=== PATIENT | male | born 1940 | race Caucasian/White ===

== ENCOUNTER → 2018-04-27 12:23 | Outpatient (CLI) | payer MEDICARE, SELFPAY ==
[2018-04-27 11:17] VITALS: BMI 30.5
--- NOTE | 2018-04-27 12:32 | RAD_ITS ---
STUDY: X-RAY CHEST REASON FOR EXAM: Male, 77 years old. Tachycardia, shortness of breath TECHNIQUE: PA and lateral views of the chest. COMPARISON: None. FINDINGS: The lungs are clear and expanded. There is no demonstrated pleural abnormality. Normal size heart. Normal mediastinum and misa. Normal visualized pulmonary arteries. Normal visualized aortic arch and descending thoracic aorta. There are diffuse degenerative changes of the visualized thoracic spine. Normal visualized ribs, clavicles, and shoulders. There is no demonstrated abnormality of the visualized soft tissue structures of the upper abdomen. RAD/Chest PA and Lateral IMPRESSION: No acute pulmonary process Electronically Signed: Miguel A Huntley MD at 12:41 EST , Service support ,
[2018-04-27 14:22] LABS: AST(SGOT) 18 U/L (15-37); Alanine Aminotransfer ALT/SGPT 23 U/L (16-61); Albumin, Serum 4.1 g/dL (3.2-5.0); Alkaline Phosphatase 77 U/L (45-117); Globulin 3.6 g/dL (2.2-4.2); Protein, Total 7.7 g/dL (6.4-8.2); T4 Free Direct 1.28 ng/dL (0.76-1.46); Thyroid Stim Hormone (TSH) 3.41 uIU/mL (0.358-3.74)
--- OUTSIDE RECORDS SUMMARY | 2018-07-02 04:31 | XMS RPT_ITS ---
:1940 Author Organization [facility] Care Team Providers Name Role Phone NARINDER MIRELES DO Attending Unavailable NARINDER MIRELES DO Primary Care Unavailable NARINDER MIRELES DO Attending Unavailable NARINDER MIRELES DO Primary Care Unavailable Ewelina Cervantes Attending Unavailable Ender Rose Attending Unavailable DOCTOR, OUT OF TOWN Referring Unavailable Ender Rose Attending Unavailable Ender Rose Referring Unavailable Narinder Mireles Primary Care Unavailable PROBLEMS PROBLEMS DATE TYPE CONDITION / CODE ATTENDING STATUS SOURCE 04/27/2018 Unknown I48.0 - Paroxysmal SophiageorgeEnder montoya Active [place] [facility] fibrillation / [facility] I48.0(ICD-10) Repository PROCEDURES PROCEDURES No Procedure Records FoundRESULTS RESULTS LIVER PROFILE Collected: 04/27/2018 Status: F Source: JOSIE 1:03 PM [facility] REPOSITORY TYPE CODE TESTS RESULT OUT OF RANGE REFERENCE UNITS LAB L501.1500 6.4-8.2 g/dL Normal T PROT 7.7 LAB L501.1800 3.2-5.0 g/dL Normal ALB 4.1 LAB L501.1950 2.2-4.2 g/dL Normal GLOB 3.6 LAB L501.4100 15-37 U/L Normal AST 18 LAB L501.4305 45-117 U/L Normal ALK P 77 LAB L501.4405 16-61 U/L Normal ALT 23 LAB L501.4600 0.20-1.00 mg/dL Normal T BILI 0.60 LAB L501.4700 0.00-0.30 mg/dL Normal D BILI 0.20 Performed By: #### L500.3400, L501.9520, L506.0400 #### [facility] [address] [place], [place], [id number] THYROID STIM HORMONE Collected: 04/27/2018 Status: F Source: JOSIE (TSH) 1:03 PM [facility] REPOSITORY TYPE CODE TESTS RESULT OUT OF RANGE REFERENCE UNITS LAB L501.9520 0.358-3.74 uIU/mL Normal TSH 3.41 Performed By: #### L500.3400, L501.9520, L506.0400 #### [facility] [address] [place], [place], [id number] T4 FREE DIRECT Collected: 04/27/2018 Status: F Source: JOSIE 1:03 PM [facility] REPOSITORY TYPE CODE TESTS RESULT OUT OF RANGE REFERENCE UNITS LAB L506.0400 0.76-1.46 ng/dL Normal T4 FREE 1.28 DIRECT Performed By: #### L500.3400, L501.9520, L506.0400 #### [facility] [address] [place], [address] CARDIOLOGY VISIT Observed: 04/27/2018 Status: F Source: JOSIE REPORT 12:46 PM [facility] REPOSITORY [facility] [address] [place] [address] OFFICE VISIT Date of Service: 04/27/18 MR#: [id number] Acct: [id number] Name: TAVON MONTGOMERY Rep #: [id number] : 1940 Provider: Ender Rose MD Age/Sex: 77/M Location: [facility] [place] Status: Signed HPI HPI Details: TAVON MONTGOMERY, is a 77 M who presents to the office today for Outpatient cardiovascular consultation for concerns of paroxysmal atrial fibrillation. He has a history of underlying atrial fibrillation. It appears that he was hospitalized at [facility] in July 2016 for concerns of underlying atrial fibrillation. It appears during his cardiovascular evaluation he has undergone studies which have included a transthoracic echocardiogram and a pharmacologic stress nuclear imaging study. In July of 2016 he had a transthoracic echocardiogram. His left ventricle was reported as demonstrating mildly to moderately increased wall thickness, hypokinesis of the anteroseptum and the anterior wall, an LVEF of 50%, with left atrial dilatation, right atrial dilatation, mild mitral annular calcification with mild diffuse thickening of the mitral valve leaflets with mild mitral valve stenosis and mild MR, and trivial AI. There was also a comment of moderate tricuspid valve regurgitation. In August of 2016 he had a pharmacologic stress nuclear imaging study performed. This was reported as showing no evidence of ischemia or infarction. Ejection fraction was unable to be calculated due to his underlying atrial fibrillation. He has previously followed with Dr. Edvin Land of cardiology. He has been following with his physician collet gluer since Dr. Soria . He states he has continued medical management and she has not required additional diagnostic studies or therapeutic intervention. He had an outpatient visit on 03/07/2018. At that time he was being followed for his history of atrial dysrhythmia as well as hypertension. Today he states overall he has done well. He is not complaining of any ongoing symptoms at rest or with exertion of classic angina pectoris. He has had no evidence of overt CHF or pulmonary edema. There has been no near syncope or syncope. He has not recognized any obvious palpitations or rapid rates. He did have a followup ECG in the office today. He was noted to be in sinus rhythm with low voltage QRS with poor R-wave progression and an anteroseptal TX pattern of indeterminate age which could not be excluded. He states he has had no followup laboratory studies, chest X rays, or PFTs to the best of his knowledge since being on amiodarone therapy. Intake Vital Signs04/27/18 Height 5 ft 10 in 04/27/18 Weight: 213 lb 04/27/18 Body Mass Index (BMI) 30.5 04/27/18 Blood Pressure 134/68 H Intake Visit Reasons: Transfer from [facility] Allergies ibuprofen [From Motrin IB] Allergy (Unknown, Verified 04/27/18 11:18) Unknown Medications ezetimibe 10 mg tablet 10 mg PO DAILY 04/21/18 [History Confirmed 04/27/18] magnesium oxide 400 mg capsule 1,600 mg PO DAILY cap 04/21/18 [History Confirmed 04/27/18] rivaroxaban 20 mg tablet 20 mg PO DAILY 04/21/18 [History Confirmed 04/27/18] amiodarone 200 mg tablet 200 mg PO DAILY 04/27/18 [History Confirmed 04/27/18] isosorbide mononitrate ER 30 mg tablet,extended release 24 hr 30 mg PO DAILY 04/27/18 [History Confirmed 04/27/18] [facility] Medical History Paroxysmal atrial fibrillation (Chronic) Essential hypertension (Chronic) Pure hypercholesterolemia (Chronic) Osteoarthritis (Chronic) Surgical History History of appendectomy (Resolved) History of right knee joint replacement (Resolved) Family History Mother Diabetes Social History Smoking Status: Former smoker alcohol intake: never substance use type: does not use ROS Const Const: Negative for fatigue, weakness, weight gain, weight loss, frequent falls or excessive sweating Eyes Eyes: Negative for change in vision, blurry vision or transient loss of vision ENT ENT: Negative for dizziness or balance problems Cardio Chest Pain: No Palpitations: No Edema: None Muscle aches with walking: None Additional Details: Patient reports that pain from back to Lt chest is recurrent shingle pain Resp Respiratory: Positive for SOB with activity (occasional); negative for SOB at rest GI GI: Negative vomiting or vomiting blood/hematemesis : Negative for hematuria Musc Musc: Negative for balance problems, muscle aches/ myalgia, muscle weakness or joint pain Skin Skin: Negative non-healing lesions or rash Neuro Neuro: Negative for weakness, blurry vision, dizziness, lightheadedness, frequent falls or orthostatic symptoms William Hematologic/Lymphatic: Negative for easy bleeding Endo Endo: Negative for fatigue or excessive sweating Psych Psych: Negative for anxiety or depression Allergy Allergy/Immunology: Negative for hives, Negative for rash Cardiology Exam Const Appearance: cooperative, healthy appearing, comfortable, no acute distress, well developed and well groomed Nutritional Appearance: overweight Orientation: alert, awake and oriented x3 Head Head: normal to inspection, normocephalic and atraumatic Ears: hearing grossly normal bilaterally Nose: external nose normal Face and Sinus: face symmetric Mouth: oral mucosae normal Teeth and gingiva: poor dentition Eyes Eyelids: eyelids normal Conjunctivae: conjunctivae normal Pupils: PERRL EOM: EOM intact bilaterally Neck Neck: normal visual inspection and full ROM Carotids: normal carotid upstroke Chest Chest inspection: normal inspection of the chest Auscultation: Bilateral: Clear to Auscultation Cardio Palpation: normal PMI Rate: regular rate Rhythm: regular rhythm Heart sounds: S1 normal and S2 normal Murmur: Grade 2/6, soft, mid systolic and LLSB GI GI: normal to inspection, bowel sounds present and soft Neuro General: alert, awake, oriented x3 and moves all extremities Skin Skin: no rashes or lesions noted Extremities Pulses: Normal: Right Radial Pulse, Left Radial Pulse Lower Extremity Edema: None: Bilateral Psych Psychological: normal affect Assessment AND Plan 1. Paroxysmal atrial fibrillation I48.0 Plan At the present time he appears to be remaining in sinus rhythm. He will continue his current medical management. Based upon the medications he is on he will be setup for laboratory studies with hepatic and thyroid labs, a chest x-ray, and PFTs. Orders Orders: 2. Essential hypertension I10 Plan His blood pressure appears to be reasonably well controlled at the moment. He will continue medical management. This can be adjusted as deemed appropriate. 3. Pure hypercholesterolemia E78.00 Plan He states she has a history of hyperlipidemia which is followed by his primary care physician. He is on medical management with Zetia. Plan Detail Additional Comments At the present time he will continue medical therapy. However there has been no obvious explanation for the patient being on medical management with respect to his nitrates. He states that after being on nitrates he notices no significant difference in how he feels. Thus at the present time he will be allowed to stop his nitrate therapy. If for some reason he feels worse than he may need to resume it and undergo further evaluation and care. Otherwise he will continue with his laboratory followup, chest x-ray, and PFTs. The above was discussed with the patient and spouse. He was agreeable to this approach. Thank you for allowing me to participate in the care of your patient. Please don't hesitate to call if any issues arise. This note was generated using a voice recognition system and there may be incorrect words, spelling or punctuation that were not noted when reviewing the office note prior to saving. Follow Up 6 Months (PFM) Coding Level of Care Code Off vis,new,level 4 Diagnoses Paroxysmal atrial fibrillation I48.0 Essential hypertension I10 Pure hypercholesterolemia E78.00 Coding Level of Care Code Off vis,new,level 4 Diagnoses Paroxysmal atrial fibrillation I48.0 Essential hypertension I10 Pure hypercholesterolemia E78.00 Supplemental Info Supplemental Information Diagnostics Electrocardiogram 04/27/18 Chest X-Ray 04/27/18 04/27/18 1246 <Electronically signed by Ender Rose MD> Date Ender Rose MD Cosigner Signature: Date (if applicable) CC: Narinder Mireles DO CHEST PA AND LATERAL Observed: 04/27/2018 Status: F Source: JOSIE 12:30 PM [facility] REPOSITORY [facility] Imaging Services [facility] [address] [place] [address] Chest PA and Lateral MR#: [id number] Acct: [id number] Name: TAVON MONTGOMERY Rep #: [id number] : 1940 M 77 From: Yohan Huntley MD PCP: Narinder Mireles DO Status: REG CLI Study: Chest PA and Lateral Date of Exam: 04/27/18 Exam# [id number] Ordering Dr: Ender Rose MD STUDY: X-RAY CHEST REASON FOR EXAM: Male, 77 years old. Tachycardia, shortness of breath TECHNIQUE: PA and lateral views of the chest. COMPARISON: None. FINDINGS: The lungs are clear and expanded. There is no demonstrated pleural abnormality. Normal size heart. Normal mediastinum and misa. Normal visualized pulmonary arteries. Normal visualized aortic arch and descending thoracic aorta. There are diffuse degenerative changes of the visualized thoracic spine. Normal visualized ribs, clavicles, and shoulders. There is no demonstrated abnormality of the visualized soft tissue structures of the upper abdomen. RAD/Chest PA and Lateral IMPRESSION: No acute pulmonary process Electronically Signed: Miguel A Huntley MD at 12:41 EST , Service support , CC: Narinder Mireles DO; Ender Rose MD Director Of Publications: Signed 12 LEAD EKG PERFORMED Observed: 04/27/2018 Status: F Source: [place]OSIE BY [facility] [place] 11:14 AM [facility] REPOSITORY [facility] [address] [place] [address] 12 Lead EKG performed by [facility] [place] 04/27/18 1113 MR#: [id number] Acct: [id number] Name: TAVON MONTGOMERY Rep #: [id number] : 1940 77 From: Ender Rose MD Attending Dr: Ender Rose MD Status: DEP [facility] Ordering Dr: Ender Rose MD Date: 04/27/18 Location: [facility] [place] Sex: M C Admitted: BMS/12 Lead EKG performed by [facility] [place] ECG Report Interpretation Sinus Rhythm Low voltage QRS (limb leads)Poor R wave progressionAnteroseptal TX, age undetermined, cannot be excludedNonspecific T wave abnormalityABNORMAL Electronically signed on 04/27/2018 at 18:21 by Ender Rose Software Version [id number] 04/27/18 1825 Date Ender Rose MD CC: OUT OF TOWN DOCTOR Date Dictated: 04/27/18 1113 Date Transcribed: 04/27/181112 Director Of Publications: PM Signed MG Collected: 06/20/2017 Status: F Source: [facility] 11:43 AM [facility] REPOSITORY TYPE CODE TESTS RESULT OUT OF REFERENCE UNITS RANGE LAB MG(LOINC) 1.7-2.5 mg/dL Low Magnesium Lvl 1.6 Performed By: #### MG #### [place] [address] ALLERGIES ALLERGIES DATE TYPE / CODE NAME / CODE REACTION SEVERITY SOURCE 04/27/2018 Drug ibuprofen/F0 Unknown Unknown [facility] Allergy/4160 [id number]([facility] [address](SNOMED ORM) Repository CT) ENCOUNTERS ENCOUNTERS ADMIT/DISCHARGE ACCOUNT NUMBER ADMITTING ENCOUNTER LOCATION SOURCE CLASS 04/27/2018 [id number] Ambulatory [facility] ding:RAD Repository 04/27/2018/04/27/19 [id number] Ambulatory BMSBuilding: [place] [facility] Repository 04/21/2018 [id number] Ambulatory BMSBuilding: [place] [facility] Repository 06/20/2017/06/21/19 [id number] Ambulatory BBuilding:[address] Repository 06/01/2017/06/01/19 [id number] Ambulatory [address] ding:[facility] Repository PAYERS PAYERS ENCOUNTER GUARANTOR PAYER SUBSCRIBER SOURCE 04/27/2018 TAVON C Primary TAVON C Josie [id number] Insurance:HUMANA SETTIEDOB: Community [place] [employer] MEDICARE [place] [address] Number: Repository [address]Srw: 330 [id number] [phone] (HP) Date:[id number] [address] [place] [id number]: 04/27/2018 Secondary NOT GIVENUNK Josie Insurance:SELF PAY [facility] Number: Effective Repository Date:2018-04-27 04/27/2018 TAVON C Primary TAVON C Josie [id number] N Insurance:HUMANA SETTIEDOB: Community [place] [employer] MEDICARE PPOPolicy 1941-[address] Number: Repository [id number]: 330 [id number] [phone] () Date:[id number] [id number]: 04/27/2018 Secondary NOT GIVENUNK Josie Insurance:SELF PAY [facility] Number: Effective Repository Date:2018-04-27 04/21/2018 TAVON C Primary NOT GIVENUNK [place] [id number] Insurance:SELF PAY Community [place] [address] Number: Effective Repository [id number]: ([phone]) Date:2018-04-21 [phone] () 06/20/2017 TAVON C Primary TAVON Garcia [facility] SETTIEDOB: Insurance:HUMANA GOLD SETTIEDOB: Foundation N CHOICE MEDICAREPolicy [id number] [facility] Number: [address] [place], [place] [id number] [place] [address]~DANDRE@ Date:2017-06-20 24538Fuu: 330 [email or web address]: [id number] [phone] Name:[address] (HP)Tel: (752) (HP)Tel: [phone] [place] [address] [phone] (JE) [phone] (GQ) [address]EC: 06/01/2017 TAVON Jose [facility] Jose [facility] SETTIEDOB: Insurance:MARYA DALIA SETTIEDOB: Foundation [id number] N CHOICE MEDICAREPolicy [id number] Repository [address] Number: [address] [place], [place] [id number] [place] [address]~DANDRE@ Date:2017-06-01 15807Cbb: [phone]) [email or web address]: [id number] [phone] Name:L[place]ON Kinney (HP)Tel: [phone]) (HP)Tel: [phone], [place] [phone] (WP) [phone] (ZE) [phone]:
== END ==
PROVIDERS: Family Provider Family Medicine; PCP Family Medicine; Referring Provider Internal Medicine Cardiovascular Disease; Visit Provider Internal Medicine Cardiovascular Disease
DX: I48.0 Paroxysmal atrial fibrillation (principal)
CPT/HCPCS: 36415; 71046; 80076; 84439; 84443

== ENCOUNTER → 2018-05-15 06:51 | Outpatient (CLI) | payer MEDICARE, SELFPAY ==
[2018-04-27 11:17] VITALS: BMI 30.5
--- NOTE | 2018-05-16 12:20 | SPIR_ITS ---
Spirometry PFT Testing Spirometry PFT Testing: COMPLETE PULMONARY FUNCTION TEST INTERPRETATION Brief HPI: Patient is a 77 year old male, currently under the care of Dr. Rose, who presents to [facility] for complete pulmonary function tests secondary to diagnosis of high risk meds. Respiratory therapist reports good effort, but patient was unable to perform lung volumes or DLCO measurement secondary to pain associated with reported shingles.. Interpretation: Forced expiration spirometry shows no large airways obstructive ventilatory defect with an FEV1 of 87% predicted. There is no significant bronchodilator response by strict ATS criteria. Spirograms are of good quality and plateau slowly, indicating slowly emptying areas of the lungs. The respiratory flow volume loop shows decreased expiratory flow rates at high lung volumes consistent with small airways obstruction. Impression: Spirometry is grossly within normal limits. There is some stigmata of possible small airways disease. Unable to perform lung volumes and DLCO secondary to reported shingles.
== END ==
LOC: PSN 06:54
PROVIDERS: Family Provider Family Medicine; PCP Family Medicine; Referring Provider Internal Medicine Cardiovascular Disease; Visit Provider Internal Medicine Cardiovascular Disease
DX: I48.0 Paroxysmal atrial fibrillation (principal)
CPT/HCPCS: 94060

== ENCOUNTER → 2018-10-24 15:18 | Outpatient (CLI) | payer MEDICARE, SELFPAY ==
[2018-10-24 14:17] VITALS: BMI 29.2
[2018-10-24 16:40] LABS: Magnesium 1.7 mg/dL (1.6-2.6)
[2018-10-24 16:53] LABS: BNP,B-Type NATRIURETIC PEPTIDE 125.3 pg/mL (0-100)
== END ==
LOC: LAB 15:20
PROVIDERS: Family Provider Family Medicine; PCP Family Medicine; Referring Provider Nurse Practitioner Family; Visit Provider Nurse Practitioner Family
DX: E83.42 Hypomagnesemia (principal); R06.02 Shortness of breath
CPT/HCPCS: 36415; 83735; 83880

== ENCOUNTER → 2019-01-16 06:33 | Outpatient (CLI) | payer MEDICARE, SELFPAY ==
[2018-10-24 14:17] VITALS: BMI 29.2
[2019-01-08 12:55] VITALS: BMI 29.2
--- NOTE | 2019-01-16 11:17 | STRESSREP_ITS ---
Stress Test Report Date: 01-16-19 Procedure: Exercise tolerance test/imaging study Indications: This of breath/dyspnea; atrial fibrillation Consent: Per the patient Procedure: The patient exercised on a Jona protocol for 1 minute and 45 seconds completing completing Stage I achieving a peak heart rate of 99 bpm (69 % predicted maximal heart rate) with a peak blood pressure 150/78 mmHg and a peak MET capacity of 3 METs. The baseline ECG demonstrated sinus rhythm. The peak exercise ECG demonstrated no obvious ECG changes. There were no cardiac dysrhythmias pretest, during exercise, or recovery. The functional capacity was considered decreased. There was no complaint of chest discomfort during exercise or recovery. The examination was discontinued secondary to dyspnea. Impression: 1. Technically adequate (percent predicted maximal heart rate greater than 85%) exercise tolerance test 2. Peak exercise ECG with no obvious ECG changes 3. There were no cardiac dysrhythmias pretest, during exercise, or recovery 4. Pharmacologic (regadenoson) evaluation pending Procedure: Pharmacologic stress nuclear imaging study Consent: Per the patient Procedure: The patient underwent pharmacologic (Regadenoson) evaluation with a peak heart rate of 83 beats per minute (58 %predicted maximal heart rate) and a peak blood pressure of 142/60 mmHg. The baseline ECG demonstrated sinus rhythm. The peak pharmacologic ECG demonstrated no obvious ECG changes. There were no cardiac dysrhythmias pretest, during pharmacologic infusion, or recovery. There was no complaint of chest discomfort during pharmacologic infusion or recovery. The examination was discontinued secondary to completion of protocol. Impression: 1. Pharmacologic (Regadenoson) evaluation 2. Peak pharmacologic ECG with no obvious ECG changes. 3. There were no cardiac dysrhythmias pretest, during pharmacologic infusion, or recovery. 4. Nuclear images pending Myocardial perfusion imaging study: Technique: The patient was injected with 12.0 millicuries of technetium 99m Cardiolite and subsequently rest SPECT Cardiolite nuclear imaging was obtained in the hor izontal long, vertical long, and short axis views. The patient exercised on a Jona protocol for 1 minute and 45 seconds completing completing Stage I achieving a peak heart rate of 99 bpm (69 % predicted maximal heart rate) with a peak blood pressure 150/78 mmHg and a peak MET capacity of 3 METs. The patient underwent pharmacologic (Regadenoson) evaluation with a peak heart rate of 83 beats per minute (58 % percent predicted maximal heart rate) and a peak blood pressure of 142/60 mmHg. The patient was injected with 36.0 millicuries of technetium 99m Cardiolite and subsequently stress SPECT Cardiolite nuclear imaging was obtained in the horizontal long, vertical long, and short axis views. A gated Cardiolite study at peak stress was obtained. Interpretation: Rest and stress SPECT Cardiolite nuclear imaging status post realignment, normalization, and attenuation correction demonstrate relative uniform tracer uptake and myocardial perfusion appearing within normal limits. There is end systolic thickening and brightening. The gated Cardiolite study demonstrates myocardial thickening and inward wall motion. The reported LVEF is 66 %. Impression: 1. Rest and stress SPECT Cardiolite nuclear imaging demonstrate relative uniform tracer uptake and myocardial perfusion appearing within normal limits. 2. The gated Cardiolite study reports an LVEF of 66 %. This note was generated with [employer] software. It may contain incorrect words, spelling, and punctuation that were not noted in checking the note before signing.
[2019-01-16 15:36] LABS: Absolute Lymphocyte Count 1.21 X10^3/uL (0.83-4.51); Basophil# 0.02 X10^3/uL; Basophil% 0.5 % (0-1); Eosinophil# 0.03 X10^3/uL; Eosinophils% 0.8 % (0-5); Hematocrit 25.3 % (40-54); Hemoglobin 7.4 g/dL (13.0-16.5); Lymphocyte # 1.21 X10^3/ul (4.0); Lymphocyte % 31.5 % (19-41); Mean Corp Hgb Conc 29.2 g/dL (32-36); Mean Corpuscular Hgb 26.1 pg (27.0-32.0); Mean Corpuscular Volume 89.4 fL (80-94); Monocyte# 0.52 X10^3/uL; Monocyte% 13.5 % (0-10); NRBC Flagged by Analyzer 0 % (0-5); Neutrophil # 2.03 X10^3/uL (2.7-7.7); Neutrophil % 52.9 % (47-70); POSITIVE MORPHOLOGY YES; Platelet Count 155 K/mm3 (150-450); RBC Distribution Width CV 15.2 % (11.6-14.6); RBC Distribution Width SD 49.6 fl (35.1-43.9); Red Blood Count 2.83 M/mm3 (4.6-6.2); White Blood Count 3.8 K/mm3 (4.4-11.0)
[2019-01-16 15:44] LABS: Differential Indicated SCAN CRITERIA MET
[2019-01-16 16:07] LABS: Differential Comment SCANNED
[2019-01-16 16:08] LABS: Anisocytosis RARE; Hypochromasia RARE; Ovalocyte RARE
== END ==
PROVIDERS: Family Provider Internal Medicine; PCP Internal Medicine; Referring Provider Internal Medicine Cardiovascular Disease; Visit Provider Internal Medicine Cardiovascular Disease
DX: I48.0 Paroxysmal atrial fibrillation (principal); I10 Essential (primary) hypertension; R06.02 Shortness of breath
CPT/HCPCS: 36415; 78452; 85025; 93017; A9500; A4216; J2785

== ENCOUNTER → 2019-01-18 09:40 | Outpatient (CLI) | payer MEDICARE, SELFPAY ==
[2019-01-16 13:56] VITALS: BMI 29.8
[2019-01-18 10:15] LABS: Hematocrit 28.1 % (40-54); Hemoglobin 8.2 g/dL (13.0-16.5); Mean Corp Hgb Conc 29.2 g/dL (32-36); Mean Corpuscular Volume 89.2 fL (80-94); Mean Platelet Vol. 11.3 fl (6.2-12.0); Platelet Count 153 K/mm3 (150-450); RBC Distribution Width SD 48.9 fl (35.1-43.9); Red Blood Count 3.15 M/mm3 (4.6-6.2); White Blood Count 3.5 K/mm3 (4.4-11.0)
[2019-01-18 10:23] LABS: International Normalized Ratio 1.7
[2019-01-18 10:24] LABS: Partial Thromboplast Time 41.9 Seconds (24.1-36.2)
[2019-01-18 10:44] LABS: ALB/GLOB Ratio 0.9 RATIO (0.9-2.4); AST(SGOT) 15 U/L (15-37); Alanine Aminotransfer ALT/SGPT 19 U/L (16-61); Albumin, Serum 3.6 g/dL (3.2-5.0); Alkaline Phosphatase 95 U/L (45-117); Anion Gap 5 (5-15); BUN 19 mg/dL (7-18); BUN/Creat Ratio 17.3 RATIO (10-20); Calcium,Total 8.8 mg/dL (8.5-10.1); Chloride 110 mmol/L (98-107); EST Glomerular Filtration Rate 69 mL/min (>60); Est Glom Filt Rate - Afr Amer 83 mL/min (>60); Ferritin 14 ng/mL (26-388); Globulin 4.1 g/dL (2.2-4.2); Glucose 103 mg/dL (74-106); Iron 24 ug/dL (65-175); Iron Binding Capacity,Total 483 ug/dL (250-450); Potassium 4.1 mmol/L (3.5-5.1); Protein, Total 7.7 g/dL (6.4-8.2); Sodium Level 139 mmol/L (136-145)
== END ==
PROVIDERS: Internal Medicine Cardiovascular Disease; Family Provider Internal Medicine; PCP Internal Medicine; Referring Provider Physician Assistant Medical; Visit Provider Physician Assistant Medical
DX: R06.09 Other forms of dyspnea (principal); R94.39 Abnormal result of other cardiovascular function study; R06.02 Shortness of breath; I48.0 Paroxysmal atrial fibrillation; D64.9 Anemia, unspecified; K92.1 Melena
CPT/HCPCS: 36415; 80053; 82274; 82728; 83540; 83550; 85027; 85610; 85730

== ENCOUNTER → 2019-01-26 08:11 | Outpatient (CLI) | payer MEDICARE, SELFPAY ==
[2019-01-16 13:56] VITALS: BMI 29.8
[2019-01-26] VITALS (9 sets, daily range): BP systolic 132–159; BP diastolic 49–86; PULSE 58–63; RESP 16; TEMP 36.3–36.8; O2SAT 98–100; BMI 29.2
== END ==
LOC: MEDOUTP 08:12
PROVIDERS: Family Provider Internal Medicine; PCP Internal Medicine; Referring Provider Internal Medicine; Visit Provider Internal Medicine
DX: D50.9 Iron deficiency anemia, unspecified (principal)
CPT/HCPCS: 36415; 36430; 86850; 86900; 86901; 86920; 86922; J7040; P9016; A4216

== ENCOUNTER 2019-01-31 06:43 | Day surgery (SDC) | payer MEDICARE, SELFPAY ==
[2019-01-16 13:56] VITALS: BMI 29.8
[2019-01-26 08:31] VITALS: BMI 29.2
--- NOTE | 2019-01-30 10:47 | RAD_ITS ---
STUDY: X-RAY CHEST REASON FOR EXAM: Male, 78 years old. Shortness of breath, abnormal stress test TECHNIQUE: PA and lateral views of the chest. COMPARISON: Prior study of 04/27/2018 FINDINGS: The lungs are clear and expanded. There is no demonstrated pleural abnormality. Normal size heart. Normal mediastinum and misa. Normal visualized pulmonary arteries. Normal visualized aortic arch and descending thoracic aorta. There are diffuse degenerative changes of the visualized thoracic spine. Normal visualized ribs, clavicles, and shoulders. There is no demonstrated abnormality of the visualized soft tissue structures of the upper abdomen. RAD/Chest PA and Lateral IMPRESSION: Degenerative changes of the thoracic spine. No acute cardiopulmonary disease process is seen. Chest findings are stable in the interval. Electronically Signed: Zak Morel MD at 22:38 EDT , Service support ,
[2019-01-30 11:11] VITALS: BMI 29.8
[2019-01-30 11:40] LABS: Hematocrit 36.4 % (40-54); Hemoglobin 10.7 g/dL (13.0-16.5); Mean Corp Hgb Conc 29.4 g/dL (32-36); Mean Corpuscular Hgb 26.8 pg (27.0-32.0); Mean Platelet Vol. 11.2 fl (6.2-12.0); Platelet Count 163 K/mm3 (150-450); RBC Distribution Width CV 16.9 % (11.6-14.6); RBC Distribution Width SD 54.7 fl (35.1-43.9); White Blood Count 3.9 K/mm3 (4.4-11.0)
--- NOTE | 2019-01-31 07:43 | PCM.HP.BLA ---
Problem List (1) Dyspnea on exertion Status: Acute (2) Abnormal stress test Status: Acute (3) Paroxysmal atrial fibrillation Status: Chronic (4) Pure hypercholesterolemia Status: Chronic (5) Essential hypertension Status: Chronic (6) Anemia Status: Acute (7) Colonic mass Status: Acute (8) Preoperative cardiovascular examination Status: Acute History and Physical Date of Admission: 01/31/19 [facility] [address] [place] [address] OFFICE VISIT Date of Service: 01/16/19 MR#: [id number] Acct: [id number] Name: TAVON MONTGOMERY . Rep #: [id number] : 1940 Provider: Ewelina Sorto Age/Sex: 78/M [place] [facility] [place] Signed HPI HPI History of Present Illness Details: This is a 78-year-old gentleman that presents here today for a cardiovascular follow-up. He recently established with us. He does have a history of paroxysmal atrial fibrillation, hypertension and hyperlipidemia. His main concern is his shortness of breath. Pt had a stress test done today, this was done for increased SOB. This was ordered by his PCP. This was negative. He wonders if his SOB has to do with his hx of shingles. He was unable to complete his PFT d/t discomfort because of pain. His shortness of breath has been unchanged since his shingles episode. He notes that he is having black stools and is constipated. PCP ordered CBC and echo- these are scheduled to be done. He does not have any chest pain. He is not aware of any atrial fibrillation. He does not have any lightheadedness dizziness. He does not have any lower extremity edema. 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: No Is patient in pain?: No Allergies ibuprofen [From Motrin IB] Allergy (Unknown, Verified 01/16/19 13:56) Unknown Medications ezetimibe 10 mg tablet 10 mg PO DAILY #90 tab 07/06/18 [Rx Confirmed 01/16/19] rivaroxaban 20 mg tablet 20 mg PO DAILY #90 tab 07/06/18 [Rx Confirmed 01/16/19] magnesium 400 mg (as magnesium oxide) capsule 400 mg PO DAILY #30 cap 10/25/18 [Rx Confirmed 01/16/19] gabapentin 100 mg capsule 100 mg PO BID #60 cap 01/08/19 [Rx Confirmed 01/16/19] amiodarone 200 mg tablet 100 mg PO DAILY #90 tab 01/16/19 [Rx Confirmed 01/16/19] [facility] Medical History Paroxysmal atrial fibrillation (Chronic) Essential hypertension (Chronic) Pure hypercholesterolemia (Chronic) Osteoarthritis (Chronic) Surgical History History of appendectomy (Resolved) History of right knee joint replacement (Resolved) Family History Mother Diabetes Social History (Updated 01/16/19 @ 14:53 by NELLA Yap) alcohol intake: never substance use type: does not use ROS Const Const: Negative for fatigue, weakness, body ache, fever(s) or chills ENT ENT: Negative for dizziness Cardio Chest Pain: No Palpitations: No Edema: None Muscle aches with walking: None Resp Respiratory: Positive for SOB with activity (With the heat); negative for SOB at rest, SOB orthopnea\SOB lying down or paroxysmal nocturnal dyspnea GI GI: Positive for black,tarry stools and loose stools; negative nausea, vomiting blood/hematemesis or bright, red blood in stools : Negative for hematuria or frequent nighttime urination/ nocturia Musc Musc: Positive for joint pain (arthritis); negative for muscle aches/ myalgia Skin Skin: Negative non-healing lesions or rash Neuro Neuro: Negative for dizziness or weakness Endo Endo: Negative for fatigue Allergy Allergy/Immunology: Negative for rash Cardiology Exam Const Appearance: cooperative, healthy appearing, comfortable and no acute distress Nutritional Appearance: well nourished and overweight Orientation: alert, awake and oriented x3 Head Head: normal to inspection Ears: hearing grossly normal bilaterally Nose: external nose normal Face and Sinus: face symmetric Mouth: oral mucosae normal Eyes General: appearance normal, both eyes and all related structures Eyelids: eyelids normal EOM: EOM intact bilaterally Neck Neck: normal visual inspection and no JVD Carotids: normal carotid upstroke Chest Chest inspection: normal inspection of the chest, symmetric chest movement and normal respiratory effort; negative cough Auscultation: Bilateral: Clear to Auscultation Cardio Rate: regular rate Rhythm: regular rhythm Heart sounds: S1 normal and S2 normal; negative rub, gallop or murmur GI GI: normal to inspection Neuro General: alert, awake, oriented x3 and CN's II-XI intact bilaterally Skin Skin: no rashes or lesions noted Extremities Pulses: Normal: Right Posterior Tibial Pulse, Left Posterior Tibial Pulse, Right Radial Pulse, Left Radial Pulse Lower Extremity Edema: None: Bilateral Psych Psychological: normal affect Assessment & Plan 1. Paroxysmal atrial fibrillation I48.0 Plan Patient has not had any recurrence of his atrial fibrillation. He was unable to complete the pulmonary function test due to pain in his ribs from his shingles. We will decrease his amiodarone to 100 mg daily. He will continue with his factor X a inhibitor. 2. Shortness of breath R06.02 Plan Patient has also been discussing his shortness of breath with his primary care doctor. She has ordered a CBC and echocardiogram. His echocardiogram is scheduled for next week. Patient also notes dark stools will obtain occult stools. Patient Instructions Stop your Isosorbide, decrease your amiodarone to 100 mg. Get your blood work done and stool cards done. Youe echo that is scheduled for next week will also help to evaluate with your shortness of breath. 3. Essential hypertension I10 Plan Blood pressure is adequately controlled. He does not feel that the isosorbide is making a difference with his shortness of breath. He does not have any chest pain, will discontinue this. Plan Detail Other Orders Orders: Stool Occult Blood iFOB Today K92.1 Other Medications Changed: From: amiodarone 200 mg PO DAILY 90 tabs 3RF To: amiodarone 100 mg (1/2 x 200 mg) PO DAILY 90 tabs 3RF Discontinued: isosorbide mononitrate ER Discontinued Reason: Order Completed 30 mg PO DAILY 30 tabs 11RF Additional Comments Thank you for allowing us to participate in patient's plan of care, if you have any questions please do not hesitate to call. This note was generated using a voice recognition system and there may be incorrect words, spelling or punctuation errors that were not noted when reviewing the office note prior to saving. Follow Up 1 Month (MMM) Coding Level of Care Code Off vis,est,level 4 Diagnoses Paroxysmal atrial fibrillation I48.0 Shortness of breath R06.02 Essential hypertension I10 Coding Level of Care Code Off vis,est,level 4 Diagnoses Paroxysmal atrial fibrillation I48.0 Shortness of breath R06.02 Essential hypertension I10 Supplemental Info Supplemental Information Pharmacologic nuclear stress test in 2018 was negative for ischemia Diagnostics Electrocardiogram 04/27/18 Stress Test Nuclear Medicine 01/16/19 Stress Test 01/16/19 Chest X-Ray 04/27/18 Pulmonary Pulmonary Function Test 05/16/18 01/16/19 4898 <Electronically signed by Ewelina CARMEN> Date Ewelina CARMEN Cosigner Signature: Date (if applicable) CC: Ginger Mcmillan MD ~ I have examined the patient the following changes are noted: The patient subsequently did undergo exercise tolerance test/imaging study based upon concerns of shortness of breath/dyspnea superimposed upon his history of paroxysmal atrial fibrillation, hyperlipidemia and hypertension. The results are as noted below. Stress Test Report Date: 01-16-19 Procedure: Exercise tolerance test/imaging study Indications: This of breath/dyspnea; atrial fibrillation Consent: Per the patient Procedure: The patient exercised on a Jona protocol for 1 minute and 45 seconds completing completing Stage I achieving a peak heart rate of 99 bpm (69 % predicted maximal heart rate) with a peak blood pressure 150/78 mmHg and a peak MET capacity of 3 METs. The baseline ECG demonstrated sinus rhythm. The peak exercise ECG demonstrated no obvious ECG changes. There were no cardiac dysrhythmias pretest, during exercise, or recovery. The functional capacity was considered decreased. There was no complaint of chest discomfort during exercise or recovery. The examination was discontinued secondary to dyspnea. Impression: 1. Technically adequate (percent predicted maximal heart rate greater than 85%) exercise tolerance test 2. Peak exercise ECG with no obvious ECG changes 3. There were no cardiac dysrhythmias pretest, during exercise, or recovery 4. Pharmacologic (regadenoson) evaluation pending Procedure: Pharmacologic stress nuclear imaging study Consent: Per the patient Procedure: The patient underwent pharmacologic (Regadenoson) evaluation with a peak heart rate of 83 beats per minute (58 %predicted maximal heart rate) and a peak blood pressure of 142/60 mmHg. The baseline ECG demonstrated sinus rhythm. The peak pharmacologic ECG demonstrated no obvious ECG changes. There were no cardiac dysrhythmias pretest, during pharmacologic infusion, or recovery. There was no complaint of chest discomfort during pharmacologic infusion or recovery. The examination was discontinued secondary to completion of protocol. Impression: 1. Pharmacologic (Regadenoson) evaluation 2. Peak pharmacologic ECG with no obvious ECG changes. 3. There were no cardiac dysrhythmias pretest, during pharmacologic infusion, or recovery. 4. Nuclear images pending Myocardial perfusion imaging study: Technique: The patient was injected with 12.0 millicuries of technetium 99m Cardiolite and subsequently rest SPECT Cardiolite nuclear imaging was obtained in the horizontal long, vertical long, and short axis views. The patient exercised on a Jona protocol for 1 minute and 45 seconds completing completing Stage I achieving a peak heart rate of 99 bpm (69 % predicted maximal heart rate) with a peak blood pressure 150/78 mmHg and a peak MET capacity of 3 METs. The patient underwent pharmacologic (Regadenoson) evaluation with a peak heart rate of 83 beats per minute (58 % percent predicted maximal heart rate) and a peak blood pressure of 142/60 mmHg. The patient was injected with 36.0 millicuries of technetium 99m Cardiolite and subsequently stress SPECT Cardiolite nuclear imaging was obtained in the horizontal long, vertical long, and short axis views. A gated Cardiolite study at peak stress was obtained. Interpretation: Rest and stress SPECT Cardiolite nuclear imaging status post realignment, normalization, and attenuation correction demonstrate relative uniform tracer uptake and myocardial perfusion appearing within normal limits. There is end systolic thickening and brightening. The gated Cardiolite study demonstrates myocardial thickening and inward wall motion. The reported LVEF is 66 %. Impression: 1. Rest and stress SPECT Cardiolite nuclear imaging demonstrate relative uniform tracer uptake and myocardial perfusion appearing within normal limits. 2. The gated Cardiolite study reports an LVEF of 66 %. Status post review of the patient's case, based upon his exercise tolerance test performance, despite his myocardial perfusion imaging appearing within normal limits, it was recommended that the patient have further evaluation with diagnostic cardiac catheterization. However, prior to proceeding with such he was also recommended to have further evaluation of his gastrointestinal issues and subsequent anemia. He has undergone further evaluation by Dr. Rodríguez of gastroenterology. He was found to have a colonic mass. Dr. Rodríguez has recommended that he be evaluated for surgical removal of his colonic mass. However, prior to doing such he recommended as part of his preoperative care evaluation he be considered for further definitive evaluation based upon his symptoms and his aforementioned findings with diagnostic cardiac catheterization. After review of the patient's case, noting the need for upcoming surgical evaluation for surgical removal of his colonic mass, it did not appear unreasonable to consider further definitive evaluation of his coronary artery status in the cardiac catheterization laboratory. The procedure and risks have been discussed and reviewed with the patient. He is in agreement with the aforementioned evaluation and care plan. Depending upon the findings he may or may not need further cardiac evaluation and/or care prior to upcoming noncardiac/surgical evaluation and care. This note was generated using a voice recognition system and there may be incorrect words, spelling or punctuation that were not noted when reviewing the office note prior to saving.
--- NOTE | 2019-01-31 09:48 | CL.D_ITS ---
Patient Name: TAVON MONTGOMERY Study Date: 01/31/2019 Performing: Ender Rose MD Ht: 70.07 inches 178 cm : 1940 Wt: 203.2 lbs 92.17 kg Age: 78 Gender: male BSA: 2.1 PROCEDURE(S) PERFORMED NX25-UFY/COR/LV CLINICAL PROFILE AND INDICATIONS Indications: Cardiac Arrythmia, Suspected CAD, Pre-Operative Evaluation Heart Failure: None Stress/Imaging Date: 01/16/2019Stress Test with SPECT MPI: Negative Angina Classification Anginal Classification w/in 2 Weeks: CCS III CAD Presentations: Other: shortness of breath / angina pectoris equivalent CONCLUSIONS Elevated Left Ventricular End Diastolic Pressure Normal LV size, wall motion,and systolic function LVEF: by LV gram 60 % Comanche Multivessel CAD RECOMMENDATIONS Risk factor modification Medical therapy DESCRIPTION OF PROCEDURE The patient arrived to the procedure lab. The risks and benefits of the procedure as well as a full d escription of our services here and current unavailability of surgical backup were fully explained to the patient and/or their significant other prior to the catheterization. The Timeout was completed, verifying the correct patient and procedure. The patient's procedural site was prepped and draped in the usual fashion. Local anesthetic was given subcutaneously to right radial region with Lidocaine 2% . Using a modified Seldinger technique, arterial access was obtained via the right radial artery, a 6 Fr sheath was inserted. Left Coronary Artery selective angiography was performed in multiple views u sing a 5 Fr. 4.0 Quilcene catheter. Right Coronary Artery selective angiography was then performed in mu ltiple views using a 5 Fr. 4.0 Quilcene catheter. Left Ventriculography was performed in JENSEN projection using a 5 Fr. Pigtail catheter. LV to AO pullback pressures were then recorded.The arterial sheath was pulled and a TR Band was applied for hemostasis CORONARY ANGIOGRAPHY DOMINANCE: Right Dominant LEFT HEART ASSESSMENT Left Ventricular Ejection Fraction: by LV Gram 60 % Normal LV wall motion Elevated Left Ventricular End Diastolic Pressure LVEDP: 24 mmHg LEFT MAIN: Angiographically normal LEFT ANTERIOR DESCENDING ARTERY: PROX LAD: Mild calcification, Mild luminal irregularities, eccentric: 10 - 25 % Stenosis CIRCUMFLEX ARTERY: PROX CIRC: Mild luminal irregularities OM 1: Proximal - Mild luminal irregularities RIGHT CORONARY ARTERY: PROX RCA: Mild calcification, Mild luminal irregularities MID RCA: Mild calcification, Mild luminal irregularities DISTAL RCA: Mild luminal irregularities AORTIC ROOT: Angiographically normal COMPLICATIONS No Complications PROCEDURE MEDICATIONS Fentanyl 50 mcg IV Versed 1 mg IV Fentanyl 50 mcg IV Versed 1 mg IV Oxygen: 2 L/min via nasal cannula Heparin diluted in 23cc Heparinized saline. Patient given 10cc IA of this solution. 01/31/2019 08:44 :53 Verapamil 2.5mg, Ntg 100mcgs, 2000 units of Heparin diluted in 23cc Heparinized saline. Patient give n 10cc IA of this solution. 01/31/2019 08:44:53 SUMMARY OF HEMODYNAMIC DATA Time AIR REST ECG 07:08:30 AO 110/65 (86) SA 08:46:19 LV 142/3, 27 08:54:56 LV 146/0, 24 08:55:02 LV 151/0, 26 08:55:59 LVp 154/-1, 28 08:56:04 AOp 152/59 (93) 08:56:09 Signed By Ender Rose MD On 01/31/2019 09:47:44 Ender Rose MD
== END 2019-01-31 10:45 | disposition home or self-care (01) ==
LOC: CLSP 06:44
PROVIDERS: Family Provider Internal Medicine; PCP Internal Medicine; Referring Provider Internal Medicine Cardiovascular Disease; Visit Provider Internal Medicine Cardiovascular Disease
DX: I25.119 Atherosclerotic heart disease of native coronary artery with unspecified angina pectoris (principal); I48.0 Paroxysmal atrial fibrillation; I10 Essential (primary) hypertension; R06.02 Shortness of breath; E78.5 Hyperlipidemia, unspecified; M19.90 Unspecified osteoarthritis, unspecified site; R94.39 Abnormal result of other cardiovascular function study; Z79.82 Long term (current) use of aspirin; Z79.899 Other long term (current) drug therapy
CPT/HCPCS: 36415; 71046; 85027; 93458; 99152; 99153; J7040; Q9967; C1769; C1894

== ENCOUNTER → 2019-06-15 10:18 | Outpatient (CLI) | payer MEDICARE, SELFPAY ==
[2019-06-06 14:14] VITALS: BMI 30.1
--- NOTE | 2019-06-15 10:22 | CT_ITS ---
STUDY: CTA CHEST REASON FOR EXAM: Male, 78 years old. POSITIVE D-DIMER AND SOB RADIATION DOSAGE (If Supplied By Facility): CTDIvol = ( 12.32 ) mGy, DLP = ( 582.75 ) mGycm TECHNIQUE: The examination was performed with the intravenous administration of IV 100mL Isovue-370. Post-processing of the angiographic images was performed, with multiplanar reformation and 3D reconstruction. Individualized dose optimization techniques were used for this CT. COMPARISON: None. FINDINGS: Normal enhancement of the main pulmonary artery and right and left pulmonary arteries. Normal enhancement of the bilateral peripheral pulmonary arteries. There is no demonstrated pulmonary embolism. Normal thoracic aorta and visualized great vessels. There is no demonstrated aortic dissection. Normal heart and pericardium. Normal mediastinum. Normal hilar regions. Normal visualized trachea and bronchi. The lungs are well expanded. Mild edematous changes. No noncalcified nodule or mass. Normal pleura. Normal chest wall structures. Normal osseous structures. Small calcified gallstone in neck of the gallbladder consistent with cholelithiasis. CT/CTA Chest W/WO Contrast IMPRESSION: Normal CTA chest examination, without a demonstrated pulmonary embolism or arterial dissection. Electronically Signed: Moustapha Mc MD at 12:07 EST Tel , Service support ,
[2019-06-15 10:45] LABS: CREATININE FINGERSTICK 1.1 mg/dL (0.70-1.30)
== END ==
LOC: CT 10:19
PROVIDERS: PCP Internal Medicine; Referring Provider Internal Medicine Hematology & Oncology; Visit Provider Internal Medicine Hematology & Oncology
DX: C18.5 Malignant neoplasm of splenic flexure (principal); R06.00 Dyspnea, unspecified; R06.89 Other abnormalities of breathing; Z91.89 Other specified personal risk factors, not elsewhere classified
CPT/HCPCS: 71275; Q9967

== ENCOUNTER → 2020-10-14 08:18 | Outpatient (CLI) | payer MEDICARE, SELFPAY ==
[2020-10-09 08:32] VITALS: BMI 30.5
--- NOTE | 2020-10-14 12:42 | PFTCOMP_ITS ---
COMPLETE PULMONARY FUNCTION TEST INTERPRETATION Brief HPI: Patient is a 80 year old male, currently under the care of Carl Reaves, who presents to [facility] for complete pulmonary function tests secondary to diagnosis of dyspnea. Respiratory therapist reports good effort and reproducible results. Interpretation: Forced expiration spirometry shows no large airways obstructive ventilatory defect with an FEV1 of 89% predicted. There is no significant bronchodilator response by strict ATS criteria. Spirograms are of good quality and plateau slowly, indicating slowly emptying areas of the lungs. The respiratory flow volume loop shows decreased expiratory flow rates at high lung volumes consistent with small airways obstruction. Lung volumes by body plethysmography show a normal total lung capacity at 5.73 L, 93% predicted. All other lung volumes are within normal limits. Diffusion capacity by carbon monoxide is normal at 78% predicted. The airway resistance is slightly elevated. Compared to previous pulmonary function tests from 05/15/2018, there has been no significant change. Impression: Grossly normal pulmonary function testing with some stigmata of possible small airways disease. There is been no significant change compared to 2019.
== END ==
LOC: PSN 08:21
PROVIDERS: PCP Internal Medicine; Referring Provider Nurse Practitioner Family; Visit Provider Nurse Practitioner Family
DX: R06.09 Other forms of dyspnea (principal); Z79.899 Other long term (current) drug therapy
CPT/HCPCS: 94060; 94726; 94729

== ENCOUNTER → 2020-10-21 13:39 | Outpatient (CLI) | payer MEDICARE, SELFPAY ==
[2020-10-09 08:32] VITALS: BMI 30.5
--- NOTE | 2020-10-21 13:40 | ECHOCS_ITS ---
Reason For Study: DYSPNEA Procedure This was a 2D Doppler, Color Flow transthoracic echocardiogram. The study was technically difficult. Contrast injection was performed. Exam performed in department. Left Ventricle Normal LV size. Mild concentric left ventricular hypertrophy. Left ventricular systolic function is normal. The estimated ejection fraction is 65 %. There is evidence of diastolic dysfunction. No regional wall motion abnormalities noted. Right Ventricle Normal RV size. Normal systolic function. Atria The left atrium is mildly enlarged. Normal right atrium. No doppler evidence for ASD. Mitral Valve There is no mitral annular calcification. Normal mitral valve. Trivial mitral valve insufficiency. Tricuspid Valve Normal tricuspid valve. Trivial tricuspid valve insufficiency. Right ventricular systolic pressure estimated to be 37 mmHg. Aortic Valve Trisinus/trileaflet aortic valve. Mild focal aortic valve calcification. Pulmonic Valve The pulmonic valve is not well visualized. Great Vessels Normal sized aortic root. Pericardium/Pleural No pericardial effusion. Medication 22 gauge I.V. with prn adaptor inserted into right arm. Diluted definity 3ml given slow IV push to enhance endocardial definition. MMode/2D Measurements & Calculations LVIDd: 4.3 cm IVSd: 1.4 cm Ao root diam: 3.1 cm LVIDs: 2.5 cm LVPWd: 1.4 cm RVDd: 4.0 cm FS: 41.7 % LAV(MOD-bp): 53.8 ml LVAd ap4: 31.4 cm2 LVAd ap2: 26.9 cm2 LAV(MOD-bp) Indexed: 25.1 ml/m2 LVLd ap4: 8.1 cm LVLd ap2: 8.0 cm LAV(MOD-sp2): 48.7 ml EDV(MOD-sp4): 101.5 ml EDV(MOD-sp2): 75.8 ml LAV(MOD-sp4): 58.5 ml EDV(sp4-el): 102.7 ml EDV(sp2-el): 77.1 ml LVAs ap4: 15.5 cm2 LVAs ap2: 14.7 cm2 LVLs ap4: 6.9 cm LVLs ap2: 6.9 cm ESV(MOD-sp4): 30.5 ml ESV(MOD-sp2): 27.5 ml ESV(sp4-el): 29.9 ml ESV(sp2-el): 26.6 ml EF(MOD-sp4): 69.9 % EF(MOD-sp2): 63.7 % EF(sp4-el): 70.9 % SV(MOD-sp4): 71.0 ml SV(MOD-sp2): 48.3 ml SV(sp4-el): 72.9 ml LA A4 area: 21.3 cm2 LA dimension(2D): 4.1 cm RA A4 area: 20.7 cm2 Time Measurements MV dec time: 0.37 sec Doppler Measurements & Calculations MV E max richard: 78.6 cm/sec Lat Peak E' Richard: 3.5 cm/sec Med Peak E' Richard: 3.9 cm/sec MV A max richard: 113.5 cm/sec E/E' lat: 22.1 E/E' med: 20.3 MV E/A: 0.69 Ao V2 max: 182.3 cm/sec LV V1 max: 123.6 cm/sec PA V2 max: 123.1 cm/sec Ao max P.3 mmHg LV V1 max P.1 mmHg TR max richard: 290.9 cm/sec TR max P.9 mmHg ECHO/Echo Complete W/ Contrast Interpretation Summary Left ventricular systolic function is normal. The estimated ejection fraction is 65 %. Mild concentric left ventricular hypertrophy. The left atrium is mildly enlarged. Trivial mitral valve insufficiency. Trivial tricuspid valve insufficiency. Mild focal aortic valve calcification. Right ventricular systolic pressure estimated to be 37 mmHg. There is evidence of diastolic dysfunction. Ordering Physician: Carl Reaves/Ender Rose Referring Physician: Ginger Mcmillan Performed By: Melanie Nath, GABRIELACS, RVT
== END ==
PROVIDERS: PCP Internal Medicine; Referring Provider Nurse Practitioner Family; Visit Provider Nurse Practitioner Family
DX: I25.10 Atherosclerotic heart disease of native coronary artery without angina pectoris (principal); R06.02 Shortness of breath; R06.00 Dyspnea, unspecified
CPT/HCPCS: 93306; Q9957; A4216; C8929; J3490

== ENCOUNTER → 2021-02-20 | Outpatient (CLI) | payer MEDICARE, SELFPAY | END | disposition home or self-care (01) | LOC: LABSPEC 09:36 | PROVIDERS: PCP Family Medicine; Referring Provider Physician Assistant Surgical; Visit Provider Physician Assistant Surgical | DX: Z11.52 Encounter for screening for COVID-19 (principal) | CPT/HCPCS: 87635; U0005; U0003 ==

== ENCOUNTER → 2021-08-25 | Outpatient (CLI) | payer MEDICARE, SELFPAY ==
[2021-08-25 11:57] LABS: D-Dimer Quantitative (DVT/PE) 0.52 FEU/ug/m (0.27-0.49)
== END | disposition home or self-care (01) ==
LOC: LABSPEC 11:28
PROVIDERS: PCP Family Medicine; Referring Provider Family Medicine; Visit Provider Family Medicine
DX: R06.02 Shortness of breath (principal); R07.89 Other chest pain
CPT/HCPCS: 85379

== ENCOUNTER → 2021-10-15 | Outpatient (CLI) | payer MEDICARE, SELFPAY ==
--- NOTE | 2021-10-15 14:32 | RAD_ITS ---
INDICATION: amiodarone therapy EXAMINATION/TECHNIQUE: X-RAY - XR Chest 2 Views COMPARISON: CT chest 06/15/2019 and chest x-ray 01/30/2019. FINDINGS: LINES/DEVICES: None. LUNGS: Mildly increased lung volumes but no significantly increased hyperlucency to further suggests emphysema. Normal pulmonary interstitial pattern. No airspace opacity or MEDIASTINUM AND CARDIOVASCULAR STRUCTURES: Normal size and contour of the cardiomediastinal silhouette. No evidence of pulmonary vascular congestion. BONES AND SOFT TISSUES: Multiple bridging anterior osteophytes and multilevel endplate sclerosis. No fracture or focal osseous lesion. Degenerative changes left glenohumeral joint. RAD/Chest PA and Lateral IMPRESSION: 1. Mild increased lung volumes with no other evidence of acute cardiopulmonary disease. Electronically Signed: Levar Zhao DO at 21:12 EDT ,
[2021-10-15 16:25] LABS: AST(SGOT) 19 U/L (15-37); Alanine Aminotransfer ALT/SGPT 19 U/L (16-61); Albumin, Serum 3.8 g/dL (3.2-5.0); Alkaline Phosphatase 88 U/L (45-117); Bilirubin, Direct 0.24 mg/dL (0.00-0.30); Cholesterol 125 mg/dL (200); Globulin 3.8 g/dL (2.2-4.2); High Density Lipoprotein 47 mg/dL; Protein, Total 7.6 g/dL (6.4-8.2); T4 Total, Thyroxin 12.1 ug/dL (4.5-12.1); Thyroid Stim Hormone (TSH) 3.33 uIU/mL (0.358-3.74); Triglycerides 98 mg/dL; Very Low Density Lipoprotein 20 mg/dL (5-40)
== END | disposition home or self-care (01) ==
LOC: RAD 14:29
PROVIDERS: PCP Family Medicine; Referring Provider Internal Medicine Cardiovascular Disease; Visit Provider Internal Medicine Cardiovascular Disease
DX: M19.012 Primary osteoarthritis, left shoulder (principal); I48.0 Paroxysmal atrial fibrillation; I25.10 Atherosclerotic heart disease of native coronary artery without angina pectoris; R06.09 Other forms of dyspnea; I10 Essential (primary) hypertension; E78.00 Pure hypercholesterolemia, unspecified; Z79.899 Other long term (current) drug therapy
CPT/HCPCS: 36415; 71046; 80061; 80076; 84436; 84443

== ENCOUNTER 2022-05-16 08:59 | Emergency (ER) | payer MEDICARE, SELFPAY ==
[2022-05-16 09:02] VITALS: PULSE 89; RESP 21; TEMP 36.5; O2SAT 98; BMI 29.9
--- NOTE | 2022-05-16 09:05 | NURSING ---
NO OLD EKGS
[2022-05-16 09:08] VITALS: BP 182/82; PULSE 72; RESP 15; O2SAT 99
--- NOTE | 2022-05-16 09:08 | RAD_ITS ---
EXAM: XR Chest 1 View INDICATION: Male, 81 years old. Chest pain TECHNIQUE: Single AP view COMPARISON: 10/15/2021 FINDINGS: DEVICES: None LUNGS: Hyperexpansion of the lungs. No confluent air space opacity. Mild prominence of interstitial markings at the lung bases. No concerning pulmonary nodule. No pleural effusion or pneumothorax. MEDIASTINUM: Borderline cardiomegaly. Normal cardiac silhouette. No central pulmonary vascular congestion. . SKELETAL STRUCTURES: Multilevel degenerative changes in the spine. UPPER ABDOMEN: Unremarkable RAD/Chest 1 View (Portable) IMPRESSION: Mild chronic obstructive and interstitial change with no acute cardiopulmonary disease Electronically Signed: Nuno Zhu MD at 9:55 EST ,
--- NOTE | 2022-05-16 09:08 | EKG12_ITS ---
Test Reason : CP Blood Pressure : / mmHG Vent. Rate : 073 BPM Atrial Rate : 073 BPM P-R Int : 176 ms QRS Dur : 090 ms QT Int : 426 ms P-R-T Axes : 008 -28 011 degrees QTc Int : 469 ms Normal sinus rhythm Low voltage QRS Cannot rule out Anteroseptal infarct , age undetermined Abnormal ECG Confirmed by DG MAN, RITESH ([id number]), news assignment editor STARR LOPEZ ([id number]) on 05/17/2022 1:03:56 PM Referred By: LIZZETH Confirmed By:RITESH CONTE MD
--- NOTE | 2022-05-16 09:09 | EDS_ITS ---
HPI History of Present Illness Chief Complaint: Chest Pain Informant: patient Onset/Context/Timing Onset: Days Timing: Intermittent Quality: Positive for Pressure Location: Left Chest Current Severity: Mild Maximum Severity: Mild Narrative Narrative: Patient presents secondary to chest pain. He was actually here in the ER with his who is being seen. He states he has been having some intermittent left-sided chest pain. He also has a history of COPD and has some intermittent shortness of breath. [facility] Medical History Atherosclerotic heart disease of [place] coronary artery without angina pectoris Essential hypertension History of left heart catheterization (LHC) Osteoarthritis Paroxysmal atrial fibrillation Pure hypercholesterolemia Home Medications atorvastatin 10 mg tablet 10 mg PO DAILY 08/26/21 [History Last Taken Unknown] lisinopril 20 mg tablet 20 mg PO DAILY 08/26/21 [History Last Taken Unknown] magnesium oxide 500 mg tablet 500 mg PO DAILY 08/26/21 [History Last Taken Unknown] omeprazole 40 mg capsule,delayed release 40 mg PO DAILY 08/26/21 [History Last Taken Unknown] tiotropium bromide 18 mcg capsule with inhalation device 1 cap inhalation DAILY 08/26/21 [History Last Taken Unknown] ezetimibe 10 mg tablet (Zetia) 10 mg PO DAILY #90 tabs 10/15/21 [Rx Last Taken Unknown] gabapentin 100 mg capsule 100 mg PO QHS PRN 10/15/21 [History Last Taken Unknown] levothyroxine 25 mcg tablet 25 mcg PO DAILY 10/15/21 [History Last Taken Unknown] amiodarone 200 mg tablet 100 mg PO DAILY #45 tabs 05/14/22 [Rx Last Taken Unknown] Allergy/AdvReac Type Severity Reaction Status Date / Time ibuprofen [From Motrin IB] Allergy Unknown Unknown Verified 05/16/22 09:05 Family History Mother Diabetes Surgical History History of appendectomy History of right knee joint replacement Social History Smoking Status: Former smoker how long ago did patient quit smokin+years ago alcohol intake: current alcohol intake frequency: a few times a month substance use type: does not use caffeine: No ROS ROS ED Constitutional Constitutional ED: Denies chills or fever(s) Eyes Eyes: Denies change in vision or discharge from eye(s) ENT ENT ED: Denies discharge from eye(s), rhinorrhea or sore throat Cardiovascular Cardiovascular: Reports chest pain; Denies palpitations Respiratory/Chest Respiratory/Chest: Reports dyspnea; Denies cough Gastrointestinal Gastrointestinal: Denies abdominal pain, diarrhea, nausea or vomiting Genitourinary Genitourinary ED: Denies dysuria Musculoskeletal Musculoskeletal: Denies back pain or extremity pain Integumentary Denies Abrasions or rash Neurologic Neurologic: Denies headache(s) or weakness Psychiatric Psychiatric: Denies anxiety or depression Allergic/Immunologic Allergic/Immunologic ED: Denies lip swelling or urticaria EXAM Physical Exam Const Vital Signs: 05/16/22 09:02 05/16/22 09:06 05/16/22 09:08 Temperature 97.7 F L Temperature Source Temporal Pulse Rate 89 72 Respiratory Rate 21 H 15 Respiratory Effort Normal Non-Labored Blood Pressure 182/82 H Blood Pressure Mean 115 Pulse Ox 98 99 Oxygen Delivery Method Room Air Room Air 05/16/22 09:32 Temperature Temperature Source Pulse Rate Respiratory Rate Respiratory Effort Blood Pressure Blood Pressure Mean Pulse Ox 96 Oxygen Delivery Method Room Air Positive well nourished and well developed General Appearance ED: well developed HEENT Reports normocephalic and head/scalp atraumatic Eyes PERRL and EOMs intact bilaterally Neck supple Chest Wall inspection of chest normal Chest Narrative: Mild left chest wall tenderness to palpation. No crepitus. Resp normal respiratory effort and clear to auscultation bilaterally Cardio regular rate and regular rhythm GI normal to inspection, nondistended, normoactive bowel sounds Palpation: soft Extremity normal to inspection Neuro oriented x3 and no sensory deficits noted Sensorium / Orientation: alert Motor Exam: strength 5/5 throughout Psych mental status grossly normal Skin no rashes or lesions noted Heart Score History: Slightly/Non-Suspicious ECG: Normal Age: >/= 65 years Risk Factors: >/= 3 Risk Factors or History of CAD Troponin: </= Normal Limit Score: 4 MDM MDM MDM Narrative Medical decision making narrative: Patient had been ordered aspirin, however he states that her mood is well told him not to take it because it causes him to bleed. Heparin was therefore held. Patient was placed on floor plan adjuster to observe for arrhythmia. EKG was obtained to evaluate for cardiac ischemia. Lab work obtained to evaluate for anemia, electrolyte derangement, cardiac ischemia. Portable chest x-ray obtained to evaluate for cardiac size and any acute lung pathology. Lab Data Attestation: I reviewed the patient's lab results. Labs: Laboratory Results - last 24 hr 05/16/22 05/16/22 09:20 09:20 WBC 3.8 L RBC 3.35 L Hgb 12.2 L Hct 36.9 L MCV 110.1 H MCH 36.4 H MCHC 33.1 RDW Std Deviation 59.1 H RDW Coeff of Pato 14.7 H Plt Count 108 L MPV 12.6 H Immature Gran % (Auto) 1.600 H Neut % (Auto) 64.5 Lymph % (Auto) 21.9 [place] % (Auto) 10.7 H Eos % (Auto) 0.5 Baso % (Auto) 0.8 Absolute Neuts (auto) 2.5 Absolute Lymphs (auto) 0.84 Nucleated RBC % 0 Sodium 142 Potassium 4.2 Chloride 110 H Carbon Dioxide 24.0 Anion Gap 8 BUN 25 H Creatinine 1.15 Estim Creat Clear Calc 52.90 Est GFR (MDRD) Af Amer 79 Est GFR (MDRD) Non-Af 65 BUN/Creatinine Ratio 21.7 H Glucose 111 H Calcium 9.2 Troponin I High Sens 27 Radiography Chest X-Ray - ED: 1 View, Read by ED Physician, Chronic Changes and No Infiltrates Diagnostic Testing: Clinical Impression(s) from Imaging Studies Chest X-Ray 05/16/22 09:08 IMPRESSION: Mild chronic obstructive and interstitial change with no acute cardiopulmonary disease Electronically Signed: Nuno Zhu MD at 9:55 EST , EKG Initial EKG: Attestation: I personally reviewed and interpreted this EKG as follows: Interpretation: Sinus Rhythm (Sinus at 73 with no acute ischemia.) Treatment and Re-Evaluation Narrative: Repeat evaluation patient resting comfortably. He states that this particular episode of chest pain started yesterday therefore our initial troponin is with greater than 6 hours of symptoms. He states he gets this pain frequently. CBC today reveals leukopenia which appears to be chronic for him. Hemoglobin is 12.2, again chronic for this patient. He does have low platelet count today at 108,000. The last labs I have to compare this to are from 3-1/2 years ago. Chemistry studies are unremarkable. Troponin is normal at 27. EKG is sinus rhythm with no acute ischemia. Chest x-ray reveals chronic changes with no focal infiltrate per my interpretation. Radiology interpretation is also reviewed. Patient is comfortable with this evaluation. Given the patient has had more than 6 hours of symptoms I do not believe he needs to stay for repeat troponin. Return instructions are given. Discharge Plan Triage Chief Complaint: Chest Pain ED Provider: Pushpa Moseley Dx/Rx/DC Orders Clinical Impression: Chest pain Instructions: ED Chest Pain, Uncertain Cause Prescriptions: No Action levothyroxine 25 mcg tablet 25 mcg PO DAILY ezetimibe [Zetia] 10 mg tablet 10 mg PO DAILY Qty: 90 4RF lisinopril 20 mg tablet 20 mg PO DAILY atorvastatin 10 mg tablet 10 mg PO DAILY magnesium oxide 500 mg tablet 500 mg PO DAILY Spiriva with HandiHaler 18 mcg capsule, w/inhalation device 1 cap inhalation DAILY omeprazole 40 mg capsule,delayed release(DR/EC) 40 mg PO DAILY gabapentin 100 mg capsule 100 mg PO QHS PRN amiodarone 200 mg tablet 100 mg PO DAILY Qty: 45 3RF Primary Care Provider: Devaughn Grewal Referrals: Devaughn Grewal MD [Primary Care Provider] - 1 Week Disposition Disposition: Home, Self Care
[2022-05-16 09:28] LABS: Absolute Lymphocyte Count 0.84 X10^3/uL (0.83-4.51); Absolute Neutrophil Count 2.5 X10^3/uL (2.0-7.7); Basophil# 0.03 X10^3/uL; Basophil% 0.8 % (0-1); Eosinophil# 0.02 X10^3/uL; Eosinophils% 0.5 % (0-5); Hematocrit 36.9 % (40-54); Hemoglobin 12.2 g/dL (13.0-16.5); Lymphocyte # 0.84 X10^3/ul (0.83-4.51); Lymphocyte % 21.9 % (19-41); Mean Corp Hgb Conc 33.1 g/dL (32-36); Mean Corpuscular Hgb 36.4 pg (27.0-32.0); Mean Corpuscular Volume 110.1 fL (80-94); Mean Platelet Vol. 12.6 fl (6.2-12.0); Monocyte# 0.41 X10^3/uL; Monocyte% 10.7 % (0-10); NRBC Flagged by Analyzer 0 % (0-5); Neutrophil # 2.47 X10^3/uL (2.7-7.7); Neutrophil % 64.5 % (47-70); Platelet Count 108 K/mm3 (150-450); RBC Distribution Width CV 14.7 % (11.6-14.6); RBC Distribution Width SD 59.1 fl (35.1-43.9); Red Blood Count 3.35 M/mm3 (4.6-6.2); White Blood Count 3.8 K/mm3 (4.4-11.0)
[2022-05-16 09:32] VITALS: O2SAT 96
--- NOTE | 2022-05-16 09:36 | ED.RN ---
PATIENT REFUSED ORDERED ASA DUE TO LEATHER LEVELER TELLING PATIENT TO NOT TAKE. DR. MOREAU ACKNOWLEDGED.
[2022-05-16 09:46] LABS: Anion Gap 8 (5-15); BUN 25 mg/dL (7-18); BUN/Creat Ratio 21.7 RATIO (10-20); Calcium,Total 9.2 mg/dL (8.5-10.1); Chloride 110 mmol/L (98-107); Creatinine, Serum 1.15 mg/dL (0.70-1.30); EST Glomerular Filtration Rate 65 mL/min (>60); Est Glom Filt Rate - Afr Amer 79 mL/min (>60); Glucose 111 mg/dL (74-106); Potassium 4.2 mmol/L (3.5-5.1); Sodium Level 142 mmol/L (136-145); Troponin-I HS (w/2H Reflex) 27 pg/mL (3.0-78.0)
[2022-05-16 11:00] VITALS: RESP 18
[2022-05-16 11:25] LABS: Reflex Troponin-HS? (from REC) Y
== END 2022-05-16 11:23 | disposition home or self-care (01) ==
PROVIDERS: Emergency Provider Emergency Medicine; PCP Family Medicine; Visit Provider Emergency Medicine
DX: R07.9 Chest pain, unspecified (principal); J44.9 Chronic obstructive pulmonary disease, unspecified; I25.10 Atherosclerotic heart disease of native coronary artery without angina pectoris; E78.00 Pure hypercholesterolemia, unspecified; I10 Essential (primary) hypertension; Z87.891 Personal history of nicotine dependence
CPT/HCPCS: 71045; 80048; 84484; 85025; 93005; 99284; A4216

== ENCOUNTER → 2022-08-09 | Outpatient (CLI) | payer MEDICARE, SELFPAY ==
[2022-08-09 14:45] LABS: Absolute Lymphocyte Count 0.69 X10^3/uL (0.83-4.51); Absolute Neutrophil Count 4.1 X10^3/uL (2.0-7.7); Basophil# 0.04 X10^3/uL; Basophil% 0.7 % (0-1); Hematocrit 33.8 % (40-54); Hemoglobin 11.5 g/dL (13.0-16.5); Lymphocyte # 0.69 X10^3/ul (0.83-4.51); Lymphocyte % 12.6 % (19-41); Mean Corpuscular Hgb 36.5 pg (27.0-32.0); Mean Corpuscular Volume 107.3 fL (80-94); Monocyte# 0.63 X10^3/uL; Monocyte% 11.5 % (0-10); NRBC Flagged by Analyzer 0 % (0-5); Neutrophil # 4.09 X10^3/uL (2.7-7.7); Neutrophil % 74.5 % (47-70); Platelet Count 107 K/mm3 (150-450); RBC Distribution Width CV 13.5 % (11.6-14.6); RBC Distribution Width SD 52.7 fl (35.1-43.9); Red Blood Count 3.15 M/mm3 (4.6-6.2); White Blood Count 5.5 K/mm3 (4.4-11.0)
[2022-08-09 15:13] LABS: Anion Gap 10 (5-15); BNP,B-Type NATRIURETIC PEPTIDE 207.8 pg/mL (0-100); BUN 27 mg/dL (7-18); BUN/Creat Ratio 16.6 RATIO (10-20); Calcium,Total 9.4 mg/dL (8.5-10.1); Chloride 109 mmol/L (98-107); Creatinine, Serum 1.63 mg/dL (0.70-1.30); EST Glomerular Filtration Rate 43 mL/min (>60); Est Glom Filt Rate - Afr Amer 53 mL/min (>60); Glucose 95 mg/dL (74-106); Magnesium 1.4 mg/dL (1.6-2.6); Potassium 4.5 mmol/L (3.5-5.1); Sodium Level 139 mmol/L (136-145)
== END | disposition home or self-care (01) ==
LOC: LAB 14:19
PROVIDERS: PCP Family Medicine; Referring Provider Nurse Practitioner Gerontology; Visit Provider Nurse Practitioner Gerontology
DX: R06.09 Other forms of dyspnea (principal); I10 Essential (primary) hypertension
CPT/HCPCS: 36415; 80048; 83735; 83880; 85025

== ENCOUNTER → 2022-08-20 | Outpatient (CLI) | payer MEDICARE, SELFPAY ==
--- NOTE | 2022-08-20 12:47 | CDU_ITS ---
Reason For Study: Lightheadedness Rt. Velocities/BP Lt. Velocities/BP Prox CCA 90/17.3 cm/sec. Prox CCA 78.8/15.1 cm/sec. Mid CCA 76.8/14.5 cm/sec. Mid CCA 74.4/9 cm/sec. Dist CCA 74/13.5 cm/sec. Dist CCA 78.8/12.5 cm/sec. Prox ICA 65.2/10.2 cm/sec. Prox ICA 64.1/13.5 cm/sec. Mid ICA 102.5/28.9 cm/sec. Mid ICA 93.8/25.6 cm/sec. Dist ICA 120.7/31.1 cm/sec. Dist ICA 88.3/20.1 cm/sec. Rt. ICA/CCA = 1.57. Lt. ICA/CCA = 1.19. Prox ECA 152.1/13.8 cm/sec. Prox ECA 112.4/11.3 cm/sec. Rt. Vert. 31.7/9 cm/sec. Lt. Vert. 53.1/11.3 cm/sec. Right Extracranial There is intimal thickening but no significant atherosclerotic plaque noted in the right common carotid artery. There is heterogeneous, irregular atherosclerotic plaque noted in the right internal carotid artery. There is heterogeneous, irregular atherosclerotic plaque noted in the right external carotid artery. Antegrade flow is noted in the right vertebral artery. Left Extracranial There is intimal thickening but no significant atherosclerotic plaque noted in the left common carotid artery. There is heterogeneous, irregular atherosclerotic plaque noted in the left internal carotid artery. There is intimal thickening but no significant atherosclerotic plaque noted in the left external carotid artery. Antegrade flow is noted in the left vertebral artery. Procedure Carotid Duplex [id number]. This is a Carotid Duplex examination using B-mode, color flow and specral Doppler. Exam performed in department. VL/Carotid Duplex Ultrasound Interpretation Summary Mild (<50%) stenosis right extracranial internal carotid. Mild (<50%) stenosis left extracranial internal carotid. Patent and antegrade vertebrals bilaterally. Ordering Physician: Farheen Dobbins Referring Physician: Devaughn Grewal Performed By: Martina Garces RVT
--- NOTE | 2022-08-20 12:47 | ECHOD_ITS ---
Reason For Study: SOB Procedure This was a 2D Doppler, Color Flow transthoracic echocardiogram. Exam performed in department. Left Ventricle Normal LV size. Severe concentric left ventricular hypertrophy. Left ventricular systolic function is normal. The estimated ejection fraction is 70 %. Stage 1 diastolic dysfunction. No regional wall motion abnormalities noted. Right Ventricle Normal RV size. Normal systolic function. Atria The left atrium is moderately enlarged. The right atrium is moderately enlarged. Mitral Valve Normal mitral valve. Tricuspid Valve Normal tricuspid valve. Mild tricuspid valve insufficiency. Pulmonary artery systolic pressure is 28 mmHg. Aortic Valve Trisinus/trileaflet aortic valve. Pulmonic Valve Normal pulmonic valve. Great Vessels Normal aortic root. The pulmonary artery is normal size. Normal inferior vena cava. Pericardium/Pleural No pericardial effusion. MMode/2D Measurements & Calculations LVIDd: 4.0 cm IVSd: 1.6 cm Ao root diam: 3.3 cm LVIDs: 2.4 cm LVPWd: 1.9 cm RVDd: 3.5 cm FS: 39.9 % LAV(MOD-bp): 86.5 ml LVAd ap4: 26.7 cm2 SV(MOD-sp4): 51.0 ml LAV(MOD-bp) Indexed: 41.7 ml/m2 LVLd ap4: 8.0 cm LAV(MOD-sp2): 113.3 ml EDV(MOD-sp4): 78.0 ml LAV(MOD-sp4): 65.8 ml EDV(sp4-el): 75.6 ml LVAs ap4: 14.6 cm2 LVLs ap4: 6.7 cm ESV(MOD-sp4): 27.0 ml ESV(sp4-el): 27.1 ml EF(MOD-sp4): 65.4 % EF(sp4-el): 64.2 % SV(sp4-el): 48.5 ml LA A4 area: 24.2 cm2 LA dimension(2D): 3.9 cm RA A4 area: 24.8 cm2 Time Measurements MV dec time: 0.37 sec Doppler Measurements & Calculations MV E max richard: 79.2 cm/sec Lat Peak E' Richard: 4.3 cm/sec Med Peak E' Richard: 4.4 cm/sec MV A max richard: 115.8 cm/sec E/E' lat: 18.5 E/E' med: 18.2 MV E/A: 0.68 MV V2 max: 101.7 cm/sec Ao V2 max: 168.9 cm/sec MV max P.2 mmHg MV dec slope: 214.9 cm/sec2 Ao max P.4 mmHg MV V2 mean: 55.0 cm/sec Ao V2 mean: 116.1 cm/sec MV mean P.4 mmHg Ao mean P.3 mmHg MV V2 VTI: 29.6 cm Ao V2 VTI: 29.8 cm AV (velocity ratio): 0.85 LV V1 max: 141.4 cm/sec PA V2 max: 184.7 cm/sec TR max richard: 253.2 cm/sec LV V1 max P.0 mmHg PA V2 mean: 121.3 cm/sec TR max P.7 mmHg LV V1 mean P.6 mmHg LV V1 mean: 100.8 cm/sec LV V1 VTI: 25.3 cm ECHO/Echo Complete Interpretation Summary Normal LV size. Severe concentric left ventricular hypertrophy. Left ventricular systolic function is normal. The estimated ejection fraction is 70 %. Stage 1 diastolic dysfunction. Pulmonary artery systolic pressure is 28 mmHg. Ordering Physician: Farheen Dobbins Referring Physician: Farheen Dobbins Performed By: Alley Nugent RCS
== END | disposition home or self-care (01) ==
LOC: CVS 12:40
PROVIDERS: PCP Family Medicine; Referring Provider Nurse Practitioner Gerontology; Visit Provider Nurse Practitioner Gerontology
DX: R06.02 Shortness of breath (principal); R42 Dizziness and giddiness
CPT/HCPCS: 93306; 93880

== ENCOUNTER → 2022-09-17 | Outpatient (CLI) | payer MEDICARE, SELFPAY ==
--- NOTE | 2022-09-17 18:51 | STRESSREP ---
Stress Test Report Pharmacologic myocardial perfusion stress test. 82-year-old man with a history of dyspnea on exertion Resting EKG demonstrates normal sinus rhythm with a rate of 71 bpm. Resting blood pressure is 158/90 mmHg. 0.4 mg of regadenoson was infused per usual protocol followed by rapid intravenous saline flush injection. Continuous EKG monitoring was performed. The maximum heart rate was 93 bpm which was 66% of max impacted heart rate the maximum workload was 1 metabolic equivalent. At rest there were no ST or T wave changes noted to suggest ischemia and at peak infusion nonspecific ST changes were noted which did not meet the criteria for ischemia. No clinical angina is noted. The final blood pressure was 148/80 mmHg. Myocardial perfusion protocol. 14.5 mCi of technetium 99m sestamibi was injected at rest. 0.4 mg of regadenoson was infused per usual protocol. At peak infusion 44.7 mCi of technetium 99m sestamibi was injected stress images were obtained stress and rest images were reconstructed and compared in the short axis vertical long and horizontal long axis. Gated images were also obtained. Perfusion SPECT analysis: Review of the stress images demonstrate normal uptake of tracer noted in all areas of the myocardium. The resting images similar demonstrated normal uptake of tracer noted in all areas of the myocardium. No areas of reversibility are noted to suggest ischemia and no previous infarct is noted. Gated SPECT analysis: The gated ejection fraction is 66%. Conclusion: Normal pharmacologic myocardial perfusion stress test. Preserved ejection fraction.
== END | disposition home or self-care (01) ==
PROVIDERS: PCP Family Medicine; Referring Provider Nurse Practitioner Gerontology; Visit Provider Nurse Practitioner Gerontology
DX: R06.09 Other forms of dyspnea (principal)
CPT/HCPCS: 78452; 93017; A9500; A4216; J2785

== ENCOUNTER → 2022-11-22 | Outpatient (CLI) | payer MEDICARE, SELFPAY ==
[2022-11-22 10:57] LABS: AST(SGOT) 17 U/L (15-37); Alanine Aminotransfer ALT/SGPT 19 U/L (16-61); Albumin, Serum 3.5 g/dL (3.2-5.0); Alkaline Phosphatase 85 U/L (45-117); Anion Gap 6 (5-15); BUN 20 mg/dL (7-18); BUN/Creat Ratio 14.6 RATIO (10-20); Bilirubin, Direct 0.35 mg/dL (0.00-0.30); Chloride 111 mmol/L (98-107); Cholesterol 95 mg/dL (200); Creatinine, Serum 1.37 mg/dL (0.70-1.30); EST Glomerular Filtration Rate 53 mL/min (>60); Est Glom Filt Rate - Afr Amer 64 mL/min (>60); Globulin 4.2 g/dL (2.2-4.2); Glucose 124 mg/dL (74-106); High Density Lipoprotein 49 mg/dL; Potassium 4.1 mmol/L (3.5-5.1); Protein, Total 7.7 g/dL (6.4-8.2); Sodium Level 138 mmol/L (136-145); T4 Total, Thyroxin 13.2 ug/dL (4.5-12.1); Thyroid Stim Hormone (TSH) 2.69 uIU/mL (0.358-3.74); Triglycerides 56 mg/dL; Very Low Density Lipoprotein 11 mg/dL (5-40)
== END | disposition home or self-care (01) ==
LOC: LAB 09:41
PROVIDERS: Internal Medicine Cardiovascular Disease; PCP Family Medicine; Referring Provider Nurse Practitioner Family; Visit Provider Nurse Practitioner Family
DX: I25.10 Atherosclerotic heart disease of native coronary artery without angina pectoris (principal); I48.0 Paroxysmal atrial fibrillation; E78.00 Pure hypercholesterolemia, unspecified; Z79.899 Other long term (current) drug therapy; R06.02 Shortness of breath
CPT/HCPCS: 36415; 80048; 80061; 80076; 84436; 84443

== ENCOUNTER → 2023-01-11 | Outpatient (CLI) | payer MEDICARE, SELFPAY ==
[2023-01-11 09:46] LABS: Hematocrit 33.7 % (40-54); Mean Corp Hgb Conc 32.6 g/dL (32-36); Mean Corpuscular Hgb 36.2 pg (27.0-32.0); Mean Corpuscular Volume 110.9 fL (80-94); Mean Platelet Vol. 12.6 fl (6.2-12.0); Platelet Count 100 K/mm3 (150-450); RBC Distribution Width CV 14.1 % (11.6-14.6); RBC Distribution Width SD 57.7 fl (35.1-43.9); Red Blood Count 3.04 M/mm3 (4.6-6.2); White Blood Count 4.3 K/mm3 (4.4-11.0)
[2023-01-11 10:41] LABS: Anion Gap 4 (5-15); BUN 26 mg/dL (7-18); BUN/Creat Ratio 22.6 RATIO (10-20); Calcium,Total 8.7 mg/dL (8.5-10.1); Chloride 112 mmol/L (98-107); Creatinine, Serum 1.15 mg/dL (0.70-1.30); EST Glomerular Filtration Rate 65 mL/min (>60); Est Glom Filt Rate - Afr Amer 78 mL/min (>60); Glucose 118 mg/dL (74-106); Magnesium 1.8 mg/dL (1.6-2.6); Potassium 4.3 mmol/L (3.5-5.1); Sodium Level 137 mmol/L (136-145); Thyroid Stim Hormone (TSH) 4.07 uIU/mL (0.358-3.74)
== END | disposition home or self-care (01) ==
PROVIDERS: PCP Family Medicine; Referring Provider Nurse Practitioner Family; Visit Provider Nurse Practitioner Family
DX: Z79.899 Other long term (current) drug therapy (principal); I48.0 Paroxysmal atrial fibrillation; Z51.81 Encounter for therapeutic drug level monitoring; R06.02 Shortness of breath; R06.09 Other forms of dyspnea; E83.42 Hypomagnesemia
CPT/HCPCS: 36415; 80048; 83735; 84443; 85027

== ENCOUNTER 2023-02-27 10:10 | Emergency (ER) | payer MEDICARE, SELFPAY ==
[2023-02-27 10:11] VITALS: BP 147/71; PULSE 63; RESP 20; TEMP 36.4; O2SAT 92; BMI 30.2
--- NOTE | 2023-02-27 10:59 | RAD_ITS ---
EXAM: XR PELVIS, 1 OR 2 VIEWS CLINICAL INDICATION: Pain. TECHNIQUE: Frontal view of the pelvis. COMPARISON: No relevant prior studies available. FINDINGS: BONES/JOINTS: Heavy calcifications medial to the left femoral neck. Small calcifications overlying the left greater trochanter and overlying the left femoral neck. Innumerable calcifications overlying the right femoral head and neck. Sacroiliac joints are unremarkable. No widening of the pubic symphysis. The articular structures are unremarkable. No lytic or blastic lesions. No acute fractures. SOFT TISSUES: Unremarkable. No soft tissue swelling or gas. RAD/Pelvis 1 or 2 Views IMPRESSION: 1. No acute osseous abnormality of the pelvis. 2. 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 Electronically Signed: Reji Llanos MD at 12:54 EST ,
[2023-02-27 11:13] LABS: Mucous, Urine 0 SEEN /hpf (<or=2+); Red Blood Cells-Urine 0 SEEN /hpf (0-5); Squamous Epithelial Cells - UA 0 SEEN /hpf (0-5)
[2023-02-27 11:25] LABS: Color, Urine Yellow (Yellow); Glucose, Dipstick Normal (Normal); Ketone-Dipstick Negative (Negative); Leukocyte Esterase-Dipstick 100 /ul (Negative); Nitrite-Dipstick Positive (Negative); Occult Blood-Urine 10 /ul (Negative); Protein-Dipstick 30 mg/dl (Negative); Urine Bilirubin Dipstick Negative (Negative); Urine Clarity Clear (Clear); Urine Urobilinogen 1 mg/dl (Normal)
[2023-02-27 11:31] LABS: Anion Gap 6 (5-15); BUN 18 mg/dL (7-18); BUN/Creat Ratio 15.8 RATIO (10-20); Calcium,Total 8.5 mg/dL (8.5-10.1); Chloride 112 mmol/L (98-107); Creatinine, Serum 1.14 mg/dL (0.70-1.30); EST Glomerular Filtration Rate 65 mL/min (>60); Est Glom Filt Rate - Afr Amer 79 mL/min (>60); Estimated Creatinine Clearance 52.47 ml/min; Glucose 130 mg/dL (74-106); Potassium 4.5 mmol/L (3.5-5.1); Sodium Level 136 mmol/L (136-145)
--- NOTE | 2023-02-27 11:35 | RAD_ITS ---
EXAM: XR LEFT FEMUR, 2 VIEWS CLINICAL INDICATION: pain TECHNIQUE: Frontal and lateral views of the left femur. COMPARISON: No relevant prior studies available. FINDINGS: BONES/JOINTS: Calcifications medial to the left femoral neck and calcifications overlying the lateral aspect of the left femoral neck and overlying the left greater trochanter. Calcifications overlying the medial surface of the left knee. Chondrocalcinosis in the medial and lateral femorotibial compartments of the left knee. Pronounced narrowing of the medial and lateral femorotibial compartments of the left knee. Pronounced narrowing of the patellofemoral articulation. No acute fracture. No subluxation. Normal alignment. No sclerotic or destructive changes observed. SOFT TISSUES: Calcifications inside the patellofemoral articulation and in the suprapatellar bursa. No soft tissue swelling or gas. No radiopaque foreign body. RAD/Femur Min 2 Views IMPRESSION: 1. No acute fracture or dislocation of the left femur. 2. Extensive calcifications medial to the left femoral neck more than overlying the lateral left normal neck suggestive of calcific bursitis. 3. 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 Electronically Signed: Reji Llanos MD at 12:17 EST ,
[2023-02-27 11:36] LABS: Absolute Lymphocyte Count 0.73 X10^3/uL (0.83-4.51); Absolute Neutrophil Count 5.8 X10^3/uL (2.0-7.7); Basophil# 0.07 X10^3/uL; Basophil% 0.9 % (0-1); Eosinophil# 0.08 X10^3/uL; Eosinophils% 1.1 % (0-5); Hematocrit 35.4 % (40-54); Hemoglobin 11.7 g/dL (13.0-16.5); Lymphocyte # 0.73 X10^3/ul (0.83-4.51); Lymphocyte % 9.7 % (19-41); Mean Corp Hgb Conc 33.1 g/dL (32-36); Mean Corpuscular Hgb 36.1 pg (27.0-32.0); Mean Corpuscular Volume 109.3 fL (80-94); Mean Platelet Vol. 12.5 fl (6.2-12.0); Monocyte# 0.71 X10^3/uL; Monocyte% 9.5 % (0-10); NRBC Flagged by Analyzer 0 % (0-5); Neutrophil # 5.79 X10^3/uL (2.7-7.7); Neutrophil % 77.1 % (47-70); POSITIVE COUNT YES; Platelet Count 68 K/mm3 (150-450); RBC Distribution Width CV 14.1 % (11.6-14.6); RBC Distribution Width SD 56.2 fl (35.1-43.9); Red Blood Count 3.24 M/mm3 (4.6-6.2); White Blood Count 7.5 K/mm3 (4.4-11.0)
[2023-02-27 11:37] LABS: Differential Indicated SCAN CRITERIA MET
--- NOTE | 2023-02-27 11:41 | EDS_ITS ---
HPI History of Present Illness Chief Complaint: Fall Narrative Narrative: 82-year-old male presenting with leg pain. He describes it as below his hip and above his knee. On the lateral aspect. Patient states he fell yesterday coming into his house and he felt a little bit lightheaded and this is resolved. Patient has been up and ambulatory overnight. His states that he was outside last night and came back in and bumped his leg on the table or some other object. He was sitting on the couch but he normally sits on his chair. He complains of pain and took Tylenol about 1 AM this morning. Denies head injury or LOC. Patient's states that he was unable to get up most of the night prior to getting up and walking outside. The patient also notes that his urine showed some redness to it and thought maybe had a UTI. Denies fevers or chills. Denies nausea or vomiting [facility] Medical History Atherosclerotic heart disease of [place] coronary artery without angina pectoris COPD (chronic obstructive pulmonary disease) Essential hypertension History of left heart catheterization (LHC) Osteoarthritis Paroxysmal atrial fibrillation Pure hypercholesterolemia Home Medications atorvastatin 10 mg tablet 10 mg PO DAILY 08/26/21 [History Last Taken Unknown] tiotropium bromide 18 mcg capsule with inhalation device 1 cap inhalation DAILY 08/26/21 [History Last Taken Unknown] tamsulosin 0.4 mg capsule 0.4 mg PO DAILY 08/09/22 [History Last Taken Unknown] levothyroxine 25 mcg tablet 75 mcg PO DAILY 10/28/22 [History Last Taken Unknown] ezetimibe 10 mg tablet (Zetia) 10 mg PO DAILY #90 tabs 11/08/22 [Rx Last Taken Unknown] metoprolol succinate 25 mg tablet,extended release 24 hr 25 mg PO DAILY Dose has been decreased from 50 to 25 #90 tabs 01/12/23 [Rx Last Taken Unknown] amiodarone 200 mg tablet 200 mg PO DAILY 02/27/23 [History Last Taken Unknown] cephalexin 500 mg capsule 500 mg PO Q12 #14 CAPSULES 02/27/23 [Rx Last Taken Unknown] famotidine 40 mg tablet 40 mg PO DAILY 02/27/23 [History Last Taken Unknown] fluticasone fur. 100 mcg-umeclid 62.5 mcg-vilant 25 mcg inhalat.powder (Trelegy Ellipta) 1 inh inhalation DAILY 02/27/23 [History Last Taken Unknown] furosemide 40 mg tablet (Lasix) 40 mg PO DAILY 02/27/23 [History Last Taken Unknown] lidocaine 5 % topical patch (Lidoderm) 1 patch topical DAILY #15 ea 02/27/23 [Rx Last Taken Unknown] magnesium gluconate 27 mg magnesium (500 mg) tablet 27 mg PO TID 02/27/23 [History Last Taken Unknown] Allergy/AdvReac Type Severity Reaction Status Date / Time ibuprofen [From Motrin IB] Allergy Unknown Unknown Verified 02/27/23 10:10 Family History Mother Diabetes Surgical History History of appendectomy History of right knee joint replacement Social History Smoking Status: Former smoker how long ago did patient quit smokin+years ago alcohol intake: current alcohol intake frequency: a few times a month substance use type: does not use caffeine: No ROS ROS ED Constitutional Constitutional ED: Denies chills, fever(s) or sweats Eyes Eyes: Denies blurry vision or change in vision ENT ENT ED: Denies ear pain or sore throat Cardiovascular Cardiovascular: Denies chest pain, palpitations or racing heartbeat Respiratory/Chest Respiratory/Chest: Denies cough, dyspnea or sputum Gastrointestinal Gastrointestinal: Denies abdominal pain, constipation, diarrhea, nausea or vomiting Genitourinary Genitourinary ED: Reports hematuria; Denies dysuria or urinary frequency Musculoskeletal Musculoskeletal: Reports other Details: Left leg pain ; Denies arthralgias, myalgias or neck pain Integumentary Denies abscess, Abrasions or rash Neurologic Neurologic: Denies headache(s), paresthesias or weakness Psychiatric Psychiatric: Denies anxiety, depression, suicidal ideation or suicidal thoughts Endocrine Endocrinology: Denies polydipsia or polyuria EXAM Physical Exam Const Vital Signs: 02/27/23 10:11 02/27/23 10:22 02/27/23 13:25 Temperature 97.6 F L Temperature Source Temporal Pulse Rate 63 81 Respiratory Rate 20 H 18 Respiratory Effort Short of Breath Respiratory Depth Shallow Respiratory Pattern Tachypnea Blood Pressure 147/71 H 157/77 H Blood Pressure Mean 96 103 Pulse Ox 92 95 Oxygen Delivery Method Room Air Room Air Room Air Positive well nourished General Appearance ED: NAD HEENT atraumatic and trauma Eyes PERRL and EOMs intact bilaterally Resp normal respiratory effort and clear to auscultation bilaterally Auscultation: Negative for rales, rhonchi or wheezes Cardio regular rhythm Rate: regular rate GI normal to inspection, nondistended, normoactive bowel sounds Back/Spine normal to inspection Extremity Extremity Narrative: Tenderness to palpation of the left lateral thigh. Left hip is nontender. No leg shortening. Negative logroll. Patient able to flex his hip up off the bed and bend his knee although he does have some difficulty. No paresthesias. No rashes. No deformities. Neuro oriented x3 and CN's II-XII intact bilaterally Motor Exam: strength 5/5 throughout Psych mental status grossly normal and thought process normal Skin no rashes or lesions noted and no wounds MDM MDM MDM Narrative Medical decision making narrative: Patient medicated with Lidoderm patch and Tylenol. Will obtain x-ray of the left hip and left femur. Urinalysis was obtained to rule out UTI. She will be obtained to assess white blood cell count, hemoglobin, platelets. BMP to assess renal function and electrolytes. CBC and BMP were unremarkable. Urinalysis consistent with UTI. Patient given a dose of Keflex. Urine culture was sent. X-rays of the left hip and left femur my interpretation show no acute fractures or subluxations. Radiology interprets this and agrees. Patient initially medicated with Lidoderm patch and Tylenol and was ambulated with a walker and he states he feels comfortable going home. He does have a walker at home which he can use. Patient discharged home in stable condition. Impression: 1 left hip contusion 2. Fall 3. UTI Lab Data Attestation: I reviewed the patient's lab results. Labs: Laboratory Results - last 24 hr 02/27/23 11:09 WBC 7.5 RBC 3.24 L Hgb 11.7 L Hct 35.4 L MCV 109.3 H MCH 36.1 H MCHC 33.1 RDW Std Deviation 56.2 H RDW Coeff of [place] 14.1 Plt Count 68 L MPV 12.5 H Immature Gran % (Auto) 1.700 H Neut % (Auto) 77.1 H Lymph % (Auto) 9.7 L [place] % (Auto) 9.5 Eos % (Auto) 1.1 Baso % (Auto) 0.9 Absolute Neuts (auto) 5.8 Absolute Lymphs (auto) 0.73 L Nucleated RBC % 0 Differential Comment SCANNED Platelet Estimate MOD DEC Sodium 136 Potassium 4.5 Chloride 112 H Carbon Dioxide 18.0 L Anion Gap 6 BUN 18 Creatinine 1.14 Estim Creat Clear Calc 52.47 Est GFR (MDRD) Af Amer 79 Est GFR (MDRD) Non-Af 65 BUN/Creatinine Ratio 15.8 Glucose 130 H Calcium 8.5 Urine Color Yellow Urine Clarity Clear Urine pH 7.0 Ur Specific [place] 1.010 Urine Protein 30 H Urine Glucose (UA) Normal Urine Ketones Negative Urine Occult Blood 10 H Urine Nitrite Positive H Urine Bilirubin Negative Urine Urobilinogen 1 H Ur Leukocyte Esterase 100 H Urine RBC 0 SEEN Urine WBC 10-25 SEEN Ur Squamous Epith Cells 0 SEEN Urine Bacteria 2+ Urine Mucus 0 SEEN Radiography Diagnostic Testing: Clinical Impression(s) from Imaging Studies Pelvis X-Ray 02/27/23 10:59 IMPRESSION: 1. No acute osseous abnormality of the pelvis. 2. 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 Electronically Signed: Reji Llanos MD at 12:54 EST , Femur X-Ray 02/27/23 11:35 IMPRESSION: 1. No acute fracture or dislocation of the left femur. 2. Extensive calcifications medial to the left femoral neck more than overlying the lateral left normal neck suggestive of calcific bursitis. 3. 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 Electronically Signed: Reji Llanos MD at 12:17 EST , Discharge Plan Triage Chief Complaint: Fall ED Provider: Vega Dumont Dx/Rx/DC Orders Instructions: ED Contusion, Lower Extremity, ED Fall Prevention, ED Urinary Tract Infections in Men Prescriptions: New lidocaine [Lidoderm] 5 % adhesive patch,medicated 1 patch topical DAILY Qty: 15 0RF Rx Instructions: leave on most painful area for up to 12 hrs cephalexin 500 mg capsule 500 mg PO Q12 Qty: 14 0RF No Action levothyroxine 25 mcg tablet 75 mcg PO DAILY atorvastatin 10 mg tablet 10 mg PO DAILY Spiriva with HandiHaler 18 mcg capsule, w/inhalation device 1 cap inhalation DAILY tamsulosin 0.4 mg capsule 0.4 mg PO DAILY famotidine 40 mg tablet 40 mg PO DAILY magnesium gluconate 27 mg magnesium (500 mg) tablet 27 mg PO TID Patient Comments: TAKE 1 TABLET BY MOUTH THREE TIMES A DAY Trelegy Ellipta 100-62.5-25 mcg blister with device 1 inh INHALATION DAILY Patient Comments: INHALE 1 PUFF INSTRUCTED ONCE DAILY. furosemide [Lasix] 40 mg tablet 40 mg PO DAILY amiodarone 200 mg tablet 200 mg PO DAILY ezetimibe [Zetia] 10 mg tablet 10 mg PO DAILY Qty: 90 4RF metoprolol succinate 25 mg tablet extended release 24 hr 25 mg PO DAILY Qty: 90 3RF Primary Care Provider: Devaughn Grewal Referrals: Devaughn Grewal MD [Primary Care Provider] - Disposition Disposition: Home, Self Care
[2023-02-27 11:49] LABS: Bacteria 2+ /hpf (None Seen); White Blood Cells 10-25 SEEN /hpf (0-5)
[2023-02-27] MEDS: Lidocaine 5% Patch 1 PATCH TOPICAL (11:52)
[2023-02-27] MEDS: Acetaminophen 500 MG Tablet 1000 MG PO (11:52)
[2023-02-27 11:56] LABS: Differential Comment SCANNED; Platelet Estimate MOD DEC (ADEQ)
[2023-02-27] MEDS: Cephalexin 250 MG Capsule 500 MG PO (13:14)
[2023-02-27 13:25] VITALS: BP 157/77; PULSE 81; RESP 18; O2SAT 95
== END 2023-02-27 14:17 | disposition home or self-care (01) ==
PROVIDERS: Emergency Provider Student in an Organized Health Care Education/Training Program; PCP Family Medicine; Visit Provider Student in an Organized Health Care Education/Training Program
DX: S70.02XA Contusion of left hip, initial encounter (principal); J44.9 Chronic obstructive pulmonary disease, unspecified; N39.0 Urinary tract infection, site not specified; I25.10 Atherosclerotic heart disease of native coronary artery without angina pectoris; W19.XXXA Unspecified fall, initial encounter; I10 Essential (primary) hypertension; E78.00 Pure hypercholesterolemia, unspecified; Z87.891 Personal history of nicotine dependence
CPT/HCPCS: 72170; 73552; 80048; 81001; 85025; 87077; 87086; 87088; 87186; 99285

== ENCOUNTER → 2023-03-18 | Outpatient (REF) | payer MEDICARE, MEDICAID, SELFPAY ==
[2023-03-18 09:11] LABS: Hematocrit 27.1 % (40-54); Hemoglobin 8.7 g/dL (13.0-16.5); Mean Corp Hgb Conc 32.1 g/dL (32-36); Mean Corpuscular Hgb 36.4 pg (27.0-32.0); Mean Corpuscular Volume 113.4 fL (80-94); Platelet Count 182 K/mm3 (150-450); RBC Distribution Width CV 15.3 % (11.6-14.6); RBC Distribution Width SD 63.8 fl (35.1-43.9); Red Blood Count 2.39 M/mm3 (4.6-6.2); White Blood Count 2.8 K/mm3 (4.4-11.0)
[2023-03-18 09:19] LABS: Anion Gap 4 (5-15); BUN 26 mg/dL (7-18); Calcium,Total 8.8 mg/dL (8.5-10.1); Chloride 108 mmol/L (98-107); Creatinine, Serum 1.24 mg/dL (0.70-1.30); EST Glomerular Filtration Rate 59 mL/min (>60); Est Glom Filt Rate - Afr Amer 72 mL/min (>60); Glucose 98 mg/dL (74-106); Magnesium 1.8 mg/dL (1.6-2.6); Potassium 4.5 mmol/L (3.5-5.1); Sodium Level 136 mmol/L (136-145)
== END ==
LOC: OLS.SW 05:00
PROVIDERS: PCP Family Medicine; Visit Provider Internal Medicine
DX: J44.9 Chronic obstructive pulmonary disease, unspecified (principal); I10 Essential (primary) hypertension
CPT/HCPCS: 36415; 80048; 83735; 85027